=== PATIENT | female | born 1945 | race Caucasian/White ===

== ENCOUNTER → 2019-12-25 12:10 | Outpatient (BNVA) | payer MEDICARE, MEDICAID, SELFPAY | PROVIDERS: Family Provider Nurse Practitioner Family; PCP Nurse Practitioner Family; Visit Provider Nurse Practitioner Family | DX: I10 Essential (primary) hypertension (principal); E11.9 Type 2 diabetes mellitus without complications; E55.9 Vitamin D deficiency, unspecified; R53.83 Other fatigue | CPT/HCPCS: 80053; 80061; 82306; 83036; 84443; 85025 ==

== ENCOUNTER → 2020-04-25 10:38 | Outpatient (BNVA) | payer MEDICARE, MEDICAID, SELFPAY | PROVIDERS: Family Provider Nurse Practitioner Family; PCP Nurse Practitioner Family; Visit Provider Nurse Practitioner Family | DX: E53.8 Deficiency of other specified B group vitamins (principal) | CPT/HCPCS: 82607 ==

== ENCOUNTER → 2020-06-14 10:00 | Outpatient (BNVA) | payer MEDICARE, MEDICAID, SELFPAY | PROVIDERS: Family Provider Nurse Practitioner Family; PCP Nurse Practitioner Family; Visit Provider Nurse Practitioner Family | DX: Z11.59 Encounter for screening for other viral diseases (principal) | CPT/HCPCS: 87635 ==

== ENCOUNTER 2020-06-18 20:55 | Emergency (ER) | payer MEDICARE, MEDICAID, SELFPAY ==
--- NOTE | 2020-06-18 20:57 | XRR_ITS ---
PROCEDURE INFORMATION: Exam: XR Chest, 1 View Exam date and time: 06/18/2020 9:23 PM Age: 74 years old Clinical indication: Dyspnea; Additional info: SOB TECHNIQUE: Imaging protocol: XR of the chest Views: 1 view. COMPARISON: CR Chest 1 [place] [id number] 04/04/2017 10:19 PM FINDINGS: Lungs: There is mild ill-defined opacity in the lower lungs bilaterally. Pleural space: No large effusion or pneumothorax. Heart/Mediastinum: The cardiac silhouette is within normal limits of size given AP technique. Bones/joints: Bones are unremarkable. XR/XR chest 1V portable [id number] IMPRESSION: Nonspecific bilateral lower lung opacities. Chronicity is uncertain. Consider infection, atelectasis and interstitial disease.
--- NOTE | 2020-06-18 20:57 | ECG_ITS ---
[facility] Test Date: 2020-06-18 Pat Name: aGbi Calix Department: Room: Gender: Female Rn Family: : 1945 Requested By: Miguel Henry Order Number: [id number] Kimber MD: Ollie Eli M.D. Measurements Intervals [place] Rate: 74 P: 59 NJ: 175 QRS: -20 QRSD: 93 T: 16 QT: 328 QTc: 366 Interpretive Statements SINUS RHYTHM LOW QRS VOLTAGE IN PRECORDIAL LEADS [QRS DEFLECTION < 1.0 mV IN CHEST LEADS] LEFT VENTRICULAR HYPERTROPHY AND ST-T CHANGE [VOLTAGE CRITERIA PLUS ST/T ABNORMALITY] POSSIBLE ANTERIOR MYOCARDIAL INFARCTION , OF INDETERMINATE AGE [30 ms Q WAVE IN V3/V4, OR R < 0.2 mV IN V4] Compared to ECG 04/04/2017 23:16:06 Low QRS voltage now present ST (T wave) deviation now present Myocardial infarct finding now present Sinus bradycardia no longer present First degree AV block no longer present Electronically Signed On 06-19-2020 20:28:07 CDT by Ollie Eli M.D. [id number]
[2020-06-18 21:11] VITALS: BP 144/66; PULSE 80; RESP 24; TEMP 39.3; O2SAT 91; BMI 37.8
[2020-06-18 21:22] LABS: ABG PCO2 43.3 mmHg (35-45); ABG PH Result 7.43 (7.35-7.45); Arterial Blood Gas Hematocrit 40.8 % (37-47); Base Excess ABG 3.9 mmol/L (-2.0-2.0); Blood Gas Allen Test Pos; Blood Gas Operator Identificat JB; Blood Gas Sample Site Radial, right; Blood Gas Sample Type Arterial; HCO3 ABG 28.8 mmol/L (22-26); PO2 ABG 65.7 mmHg (80.0-100.0)
--- NOTE | 2020-06-18 21:22 | W.ED.FEVER ---
Documented by User: Miguel Henry MD 06/18/20 22:04 HPI - Fever General: Chief Complaint: Fever Stated Complaint: COVID+ / X1WK Time Seen by Provider: 06/18/20 21:00 Source: patient Mode of arrival: ambulatory Limitations: no limitations History of Present Illness: HPI Narrative: 74-year-old female who is here by EMS with COVID. She has a history of COPD as well. States that tonight she started having increasing shortness of breath. Patient tested +6 days ago and has been having symptoms for roughly a week. She states that she does wear oxygen at home as needed but is not on it all the time. Her pulse ox here was 90% on room air and is currently 96% on 2 L. She is able to talk in full sentences. She is febrile here. She denies any chest pain. Associated symptoms: Deny abdominal pain, chest pain, diarrhea, dysuria, headache(s), nausea or vomiting Review of Systems Const: Reports: fever(s) Eyes: Denies: blurry vision or eye discomfort ENMT: Denies: throat pain or dental pain Card: Denies: chest pain Resp: Reports: dyspnea and non-productive cough GI: Denies: abdominal pain, nausea, vomiting or diarrhea : Denies: dysuria Musc: Denies: neck pain or back pain Skin/Breast: Denies: rash Neuro: Denies: headache(s) Psych: Denies: depression Michael/Lymph: Denies: easy bruising All/Imm: Denies: urticaria PFSH ED PFSH: Medical History COPD (chronic obstructive pulmonary disease) DM type 2 (diabetes mellitus, type 2) Essential hypertension Osteoarthritis of knees, bilateral Family History Other COPD (chronic obstructive pulmonary disease) Physical Exam Const: COMMON NORMALS: no acute distress, patient oriented x3 and healthy appearing HENMT: COMMON NORMALS: normocephalic and atraumatic HEAD & SCALP: normocephalic and atraumatic Eye: COMMON NORMALS: Equal, round and reactive pupils present and EOMs intact bilaterally PUPIL: Yes Equal, round and reactive pupils present Neck/C-Spine: COMMON NORMALS: full ROM and supple Chest: COMMONS NORMALS: normal inspection of the chest and normal palpation of entire chest wall Resp: COMMON NORMALS: normal respiratory effort, No retractions, No use of accessory muscles and clear to auscultation bilaterally AUSCULTATION: clear to auscultation bilaterally and wheezes (mild) Cardio: COMMON NORMALS: regular rate, regular rhythm and No murmurs present (Cardio) RATE: regular rate RHYTHM: regular rhythm GI: COMMON NORMALS: Normal to inspection, nondistended, normoactive bowel sounds present, Soft to palpation, non-tender and no masses PALPATION: Yes Soft to palpation Extremity: COMMON NORMALS: normal to inspection and full ROM Neuro: COMMON NORMALS: patient oriented x3, moves all extremities and no focal motor deficits Psych: COMMON NORMALS: mental status grossly normal, Normal thought process present and cooperative THOUGHT PROCESS: Normal thought process present Skin: COMMON NORMALS: no rashes or lesions noted and no wounds GENERAL SKIN EXAM: no rashes or lesions noted Course Vital Signs: Vital signs: Vital Signs Temperature 102.7 F H 06/18/20 21:11 Pulse Rate 82 06/18/20 22:38 Respiratory Rate 18 06/18/20 23:14 Blood Pressure 130/61 06/18/20 23:14 Pulse Oximetry 96 06/18/20 23:14 MDM - Fever Lab Data: Labs: Lab Results 06/18/20 06/18/20 06/18/20 Range/Units 21:11 21:16 21:16 WBC 4.1 (4.0-10.0) 10^3/ uL RBC 3.92 L (4.1-5.3) 10^6/u L Hgb 10.7 L (11.5-15.3) g/dL Hct 34.8 L (37.0-47.0) % MCV 88.8 (81-99) fL MCH 27.3 L (28.0-34.0) pg MCHC 30.7 (30.0-36.0) g/dL RDW 14.7 (12.1-15.1) % Plt Count 170 (130-400) 10^3/c mm MPV 11.8 H (7.4-10.4) fL Neut % (Auto) 70.6 % Lymph % (Auto) 19.4 % [place] % (Auto) 9.6 % Eos % (Auto) 0.0 % Baso % (Auto) 0.2 % Neut # (Auto) 2.88 (1.8-7.7) 10^3/u L Lymph # (Auto) 0.8 (0.8-4.8) 10^3/u L [place] # (Auto) 0.4 (0.2-0.9) 10^3/u L Eos # (Auto) 0.0 (0.0-0.8) 10^3/u L Baso # (Auto) 0.0 (0.0-0.1) 10^3/u L Nucleated RBC % (a uto) 0 % Nucleated RBCs # 0.0 /100WBC Fibrinogen 491 (174-498) mg/dL D-Dimer 1.99 H (0-0.59) ug/mIFE U Specimen Type Arterial Sample Site Radial, right ABG pH 7.43 (7.35-7.45) ABG pCO2 43.3 (35-45) mmHg ABG pO2 65.7 L (80.0-100.0) mmH g ABG HCO3 28.8 H (22-26) mmol/L ABG Base Excess 3.9 H (-2.0-2.0) mmol/ L Hu Test Pos Hematocrit 40.8 (37-47) % O2 Delivery Device Nc Stocklayer ID Gurpreet Sodium (136-145) mmol/L Potassium (3.5-5.1) mmol/L Chloride (98-107) mmol/L Carbon Dioxide (22-29) mmol/L Anion Gap (5-19) BUN (8-23) mg/dL Creatinine (0.5-0.9) mg/dL GFR Calculation Glucose (65-115) mg/dL Calculated Osmolal ity (285-295) mOsm/k g Lactic Acid (0.5-2.2) mmol/L Calcium (8.5-10.5) mg/dL Total Bilirubin (0.15-1.2) mg/dL AST (0-32) U/L ALT (0-33) U/L Alkaline Phosphata se (35-105) IU/L NT-Pro-B Natriuret Pep (0-125) pg/mL Total Protein (6.6-8.7) g/dL Albumin (3.5-5.2) g/dL Globulin (1.3-4.6) g/dL 06/18/20 06/18/20 Range/Units 21:16 21:16 WBC (4.0-10.0) 10^3/ uL RBC (4.1-5.3) 10^6/u L Hgb (11.5-15.3) g/dL Hct (37.0-47.0) % MCV (81-99) fL MCH (28.0-34.0) pg MCHC (30.0-36.0) g/dL RDW (12.1-15.1) % Plt Count (130-400) 10^3/c mm MPV (7.4-10.4) fL Neut % (Auto) % Lymph % (Auto) % [place] % (Auto) % Eos % (Auto) % Baso % (Auto) % Neut # (Auto) (1.8-7.7) 10^3/u L Lymph # (Auto) (0.8-4.8) 10^3/u L [place] # (Auto) (0.2-0.9) 10^3/u L Eos # (Auto) (0.0-0.8) 10^3/u L Baso # (Auto) (0.0-0.1) 10^3/u L Nucleated RBC % (a uto) % Nucleated RBCs # /100WBC Fibrinogen (174-498) mg/dL D-Dimer (0-0.59) ug/mIFE U Specimen Type Sample Site ABG pH (7.35-7.45) ABG pCO2 (35-45) mmHg ABG pO2 (80.0-100.0) mmH g ABG HCO3 (22-26) mmol/L ABG Base Excess (-2.0-2.0) mmol/ L Hu Test Hematocrit (37-47) % O2 Delivery Device Stocklayer ID Sodium 137 (136-145) mmol/L Potassium 3.5 (3.5-5.1) mmol/L Chloride 98 (98-107) mmol/L Carbon Dioxide 27 (22-29) mmol/L Anion Gap 15.5 (5-19) BUN 6 L (8-23) mg/dL Creatinine 0.7 (0.5-0.9) mg/dL GFR Calculation Not Reportable Glucose 161 H (65-115) mg/dL Calculated Osmolal ity 285 (285-295) mOsm/k g Lactic Acid 1.0 (0.5-2.2) mmol/L Calcium 8.8 (8.5-10.5) mg/dL Total Bilirubin 0.4 (0.15-1.2) mg/dL AST 42 H (0-32) U/L ALT 17 (0-33) U/L Alkaline Phosphata se 62 (35-105) IU/L NT-Pro-B Natriuret Pep 588 H (0-125) pg/mL Total Protein 6.7 (6.6-8.7) g/dL Albumin 3.9 (3.5-5.2) g/dL Globulin 2.8 (1.3-4.6) g/dL Imaging Data^: CXR: Radiologist's impression: [place] [address] XRay Report Signed Patient: Gabi Calix Unit #: [id number] : 1945 Age/Sex: 74 / F ADM Date: 06/18/20 Loc: ER Room/Bed: Attending Dr: Ordering Provider/Ordering MD: Miguel Henry MD Date of Service: 06/18/20 Procedure(s): XR chest 1V portable [id number] Accession Number(s): [id number] Report Number: [id number] PROCEDURE INFORMATION: Exam: XR Chest, 1 View Exam date and time: 06/18/2020 9:23 PM Age: 74 years old Clinical indication: Dyspnea; Additional info: SOB TECHNIQUE: Imaging protocol: XR of the chest Views: 1 view. COMPARISON: CR Chest 1 [place] [id number] 04/04/2017 10:19 PM FINDINGS: Lungs: There is mild ill-defined opacity in the lower lungs bilaterally. Pleural space: No large effusion or pneumothorax. Heart/Mediastinum: The cardiac silhouette is within normal limits of size given AP technique. Bones/joints: Bones are unremarkable. XR/XR chest 1V portable [id number] IMPRESSION: Nonspecific bilateral lower lung opacities. Chronicity is uncertain. Consider infection, atelectasis and interstitial disease. EKG Data^: EKG 1: Attestation: I personally reviewed and interpreted this EKG as follows: EKG interpretation date: 06/18/20 EKG interpretation time: 21:07 Interpretation: nsr hr [address] or t wave abnormalities qrs 93 qtc 356 Discharge Plan Discharge Patient Disposition: Home Clinical Impression: COPD (chronic obstructive pulmonary disease), COVID-19 Condition: Stable Prescriptions: New prednisone 50 mg tablet 50 mg PO DAILY Qty: 5 RF: 0 doxycycline hyclate 100 mg capsule 100 mg PO BID 10 Days Qty: 20 RF: 0 No Action nystatin 100,000 unit/gram cream TOPICAL RF: 0 bumetanide 1 mg tablet 1 mg PO BID 30 Days Qty: 60 RF: 2 omega-3 fatty acids [Fish Oil Concentrate] 1,000 mg capsule 1,000 mg PO DAILY RF: 0 albuterol sulfate [ProAir HFA] 90 mcg/actuation HFA aerosol inhaler 2 puff INHALATION QID PRN (Reason: shortness of breath or wheezing) 30 Days Qty: 8.5 RF: 5 citalopram 20 mg tablet 20 mg PO DAILY 30 Days Qty: 30 RF: 2 celecoxib [Celebrex] 200 mg capsule 200 mg PO DAILY Qty: 30 RF: 2 furosemide [Lasix] 20 mg tablet 20 mg PO QAM 30 Days Qty: 30 RF: 2 omeprazole 40 mg capsule,delayed release(DR/EC) 40 mg PO DAILY Qty: 30 RF: 2 celecoxib [Celebrex] 200 mg capsule 200 mg PO DAILY Qty: 30 RF: 2 citalopram 20 mg tablet 20 mg PO DAILY Qty: 30 RF: 2 calcitonin (salmon) 200 unit/actuation spray,non-aerosol See Rx Instructions .ROUTE .COMPLEX Qty: 3.7 RF: 2 fluticasone propionate 50 mcg/actuation spray,suspension See Rx Instructions .ROUTE .COMPLEX Qty: 16 RF: 2 cyanocobalamin (vitamin B-12) 1,000 mcg/mL solution See Rx Instructions .ROUTE .COMPLEX Qty: 4 RF: 0 Discharge Orders: Discharge Order (Routine); Ordered 06/18/20 Ordered By: Kirill Munoz Referrals: RITU Smith, PRINTER TECHNICIAN [Primary Care Provider] - 1-3 days Discharge Diet: Advance as tolerated Discharge Activity: Resume usual activity Patient Instructions: Chronic Obstructive Pulmonary Disease (ED) Coding Level of Care Code ED Spray Dry Operator for Chg Fwd Exam Comprehensive Documented by User: Kirill Munoz DO 06/18/20 23:44 HPI - Fever General: Chief Complaint: Fever Stated Complaint: COVID+ / X1WK Time Seen by Provider: 06/18/20 21:00 [facility]: Medical History COPD (chronic obstructive pulmonary disease) DM type 2 (diabetes mellitus, type 2) Essential hypertension Osteoarthritis of knees, bilateral Family History Other COPD (chronic obstructive pulmonary disease) Course Vital Signs: Vital signs: Vital Signs Temperature 102.7 F H 06/18/20 21:11 Pulse Rate 82 06/18/20 22:38 Respiratory Rate 18 06/18/20 23:14 Blood Pressure 130/61 06/18/20 23:14 Pulse Oximetry 96 06/18/20 23:14 MDM - Fever MDM Narrative: Medical decision making narrative: Received in checkout from Dr. Henry at shift change. This lady is a 74-year-old COVID 19+ lady with a history of lung disease, she has oxygen at home. She uses it usually as needed, with BiPAP at night. She is in no distress, satting 94% on 2 L. CTA shows only mild bilateral infiltrates consistent with COVID pneumonia. She is received dexamethasone. She will go home on dexamethasone, with consistent use of her oxygen at home at 2 L to start. She will use her BiPAP at night. Her inflammatory markers were not significantly elevated. Lab Data: Labs: Lab Results 06/18/20 06/18/20 06/18/20 Range/Units 21:11 21:16 21:16 WBC 4.1 (4.0-10.0) 10^3/ uL RBC 3.92 L (4.1-5.3) 10^6/u L Hgb 10.7 L (11.5-15.3) g/dL Hct 34.8 L (37.0-47.0) % MCV 88.8 (81-99) fL MCH 27.3 L (28.0-34.0) pg MCHC 30.7 (30.0-36.0) g/dL RDW 14.7 (12.1-15.1) % Plt Count 170 (130-400) 10^3/c mm MPV 11.8 H (7.4-10.4) fL Neut % (Auto) 70.6 % Lymph % (Auto) 19.4 % [place] % (Auto) 9.6 % Eos % (Auto) 0.0 % Baso % (Auto) 0.2 % Neut # (Auto) 2.88 (1.8-7.7) 10^3/u L Lymph # (Auto) 0.8 (0.8-4.8) 10^3/u L [place] # (Auto) 0.4 (0.2-0.9) 10^3/u L Eos # (Auto) 0.0 (0.0-0.8) 10^3/u L Baso # (Auto) 0.0 (0.0-0.1) 10^3/u L Nucleated RBC % (a uto) 0 % Nucleated RBCs # 0.0 /100WBC Fibrinogen 491 (174-498) mg/dL D-Dimer 1.99 H (0-0.59) ug/mIFE U Specimen Type Arterial Sample Site Radial, right ABG pH 7.43 (7.35-7.45) ABG pCO2 43.3 (35-45) mmHg ABG pO2 65.7 L (80.0-100.0) mmH g ABG HCO3 28.8 H (22-26) mmol/L ABG Base Excess 3.9 H (-2.0-2.0) mmol/ L Hu Test Pos Hematocrit 40.8 (37-47) % O2 Delivery Device Nc Stocklayer ID Gurpreet Sodium (136-145) mmol/L Potassium (3.5-5.1) mmol/L Chloride (98-107) mmol/L Carbon Dioxide (22-29) mmol/L Anion Gap (5-19) BUN (8-23) mg/dL Creatinine (0.5-0.9) mg/dL GFR Calculation Glucose (65-115) mg/dL Calculated Osmolal ity (285-295) mOsm/k g Lactic Acid (0.5-2.2) mmol/L Calcium (8.5-10.5) mg/dL Total Bilirubin (0.15-1.2) mg/dL AST (0-32) U/L ALT (0-33) U/L Alkaline Phosphata se (35-105) IU/L NT-Pro-B Natriuret Pep (0-125) pg/mL Total Protein (6.6-8.7) g/dL Albumin (3.5-5.2) g/dL Globulin (1.3-4.6) g/dL 06/18/20 06/18/20 Range/Units 21:16 21:16 WBC (4.0-10.0) 10^3/ uL RBC (4.1-5.3) 10^6/u L Hgb (11.5-15.3) g/dL Hct (37.0-47.0) % MCV (81-99) fL MCH (28.0-34.0) pg MCHC (30.0-36.0) g/dL RDW (12.1-15.1) % Plt Count (130-400) 10^3/c mm MPV (7.4-10.4) fL Neut % (Auto) % Lymph % (Auto) % [place] % (Auto) % Eos % (Auto) % Baso % (Auto) % Neut # (Auto) (1.8-7.7) 10^3/u L Lymph # (Auto) (0.8-4.8) 10^3/u L [place] # (Auto) (0.2-0.9) 10^3/u L Eos # (Auto) (0.0-0.8) 10^3/u L Baso # (Auto) (0.0-0.1) 10^3/u L Nucleated RBC % (a uto) % Nucleated RBCs # /100WBC Fibrinogen (174-498) mg/dL D-Dimer (0-0.59) ug/mIFE U Specimen Type Sample Site ABG pH (7.35-7.45) ABG pCO2 (35-45) mmHg ABG pO2 (80.0-100.0) mmH g ABG HCO3 (22-26) mmol/L ABG Base Excess (-2.0-2.0) mmol/ L Hu Test Hematocrit (37-47) % O2 Delivery Device Stocklayer ID Sodium 137 (136-145) mmol/L Potassium 3.5 (3.5-5.1) mmol/L Chloride 98 (98-107) mmol/L Carbon Dioxide 27 (22-29) mmol/L Anion Gap 15.5 (5-19) BUN 6 L (8-23) mg/dL Creatinine 0.7 (0.5-0.9) mg/dL GFR Calculation Not Reportable Glucose 161 H (65-115) mg/dL Calculated Osmolal ity 285 (285-295) mOsm/k g Lactic Acid 1.0 (0.5-2.2) mmol/L Calcium 8.8 (8.5-10.5) mg/dL Total Bilirubin 0.4 (0.15-1.2) mg/dL AST 42 H (0-32) U/L ALT 17 (0-33) U/L Alkaline Phosphata se 62 (35-105) IU/L NT-Pro-B Natriuret Pep 588 H (0-125) pg/mL Total Protein 6.7 (6.6-8.7) g/dL Albumin 3.9 (3.5-5.2) g/dL Globulin 2.8 (1.3-4.6) g/dL Discharge Plan Discharge Patient Disposition: Home Clinical Impression: COPD (chronic obstructive pulmonary disease), COVID-19 Condition: Stable Prescriptions: New prednisone 50 mg tablet 50 mg PO DAILY Qty: 5 RF: 0 doxycycline hyclate 100 mg capsule 100 mg PO BID 10 Days Qty: 20 RF: 0 No Action nystatin 100,000 unit/gram cream TOPICAL RF: 0 bumetanide 1 mg tablet 1 mg PO BID 30 Days Qty: 60 RF: 2 omega-3 fatty acids [Fish Oil Concentrate] 1,000 mg capsule 1,000 mg PO DAILY RF: 0 albuterol sulfate [ProAir HFA] 90 mcg/actuation HFA aerosol inhaler 2 puff INHALATION QID PRN (Reason: shortness of breath or wheezing) 30 Days Qty: 8.5 RF: 5 citalopram 20 mg tablet 20 mg PO DAILY 30 Days Qty: 30 RF: 2 celecoxib [Celebrex] 200 mg capsule 200 mg PO DAILY Qty: 30 RF: 2 furosemide [Lasix] 20 mg tablet 20 mg PO QAM 30 Days Qty: 30 RF: 2 omeprazole 40 mg capsule,delayed release(DR/EC) 40 mg PO DAILY Qty: 30 RF: 2 celecoxib [Celebrex] 200 mg capsule 200 mg PO DAILY Qty: 30 RF: 2 citalopram 20 mg tablet 20 mg PO DAILY Qty: 30 RF: 2 calcitonin (salmon) 200 unit/actuation spray,non-aerosol See Rx Instructions .ROUTE .COMPLEX Qty: 3.7 RF: 2 fluticasone propionate 50 mcg/actuation spray,suspension See Rx Instructions .ROUTE .COMPLEX Qty: 16 RF: 2 cyanocobalamin (vitamin B-12) 1,000 mcg/mL solution See Rx Instructions .ROUTE .COMPLEX Qty: 4 RF: 0 Discharge Orders: Discharge Order (Routine); Ordered 06/18/20 Ordered By: Kirill Munoz Referrals: RITU Smith, PRINTER TECHNICIAN [Primary Care Provider] - 1-3 days Discharge Diet: Advance as tolerated Discharge Activity: Resume usual activity Patient Instructions: Chronic Obstructive Pulmonary Disease (ED) Coding Level of Care Code ED Spray Dry Operator for Prince Fwdarryl Exam Comprehensive
[2020-06-18 21:23] LABS: Oxygen Device NC
[2020-06-18] MEDS: dexamethasone 10 mg/mL INJ IVP (21:23)
[2020-06-18] MEDS: acetaminophen 500 mg Tablet 1000 MG PO (21:41)
[2020-06-18 21:48] LABS: Basophils % 0.2 %; Hematocrit 34.8 % (37.0-47.0); Hemoglobin 10.7 g/dL (11.5-15.3); Lymphocytes # 0.8 10^3/uL (0.8-4.8); Lymphocytes % 19.4 %; Mean Corpuscular HGB Conc 30.7 g/dL (30.0-36.0); Mean Corpuscular Hemoglobin 27.3 pg (28.0-34.0); Mean Corpuscular Volume 88.8 fL (81-99); Mean Platelet Volume 11.8 fL (7.4-10.4); Monocytes # 0.4 10^3/uL (0.2-0.9); Monocytes % 9.6 %; Neutrophils # 2.88 10^3/uL (1.8-7.7); Neutrophils % 70.6 %; Nucleated Red Blood Cells % 0 %; Platelet Count 170 10^3/cmm (130-400); Red Blood Count 3.92 10^6/uL (4.1-5.3); Red Cell Distribution Width 14.7 % (12.1-15.1); White Blood Count 4.1 10^3/uL (4.0-10.0)
[2020-06-18 21:55] LABS: Fibrinogen 491 mg/dL (174-498)
[2020-06-18 21:56] LABS: D Dimer 1.99 ug/mIFEU (0-0.59)
--- NOTE | 2020-06-18 21:59 | CTR_ITS ---
PROCEDURE INFORMATION: Exam: CT Angiography Chest With Contrast Exam date and time: 06/18/2020 10:17 PM Age: 74 years old Clinical indication: Shortness of breath; Patient HX: Covid+, HX of copd C/O worsening SOB w elev d-dimer TECHNIQUE: Imaging protocol: Computed tomographic angiography of the chest with intravenous contrast. 3D rendering (Not supervised by radiologist): MIP and/or 3D reconstructed images were created by the technologist. Radiation optimization: All CT scans at this facility use at least one of these dose optimization techniques: automated exposure control; mA and/or kV adjustment per patient size (includes targeted exams where dose is matched to clinical indication); or iterative reconstruction. Contrast material: OMNI 350; Contrast volume: 95 ml; Contrast route: INTRAVENOUS (IV); COMPARISON: CR (CHEST, ) 06/18/2020 9:12 PM RADIATION DOSE METRICS: Total DLP (mGy-cm): 534.42 FINDINGS: Pulmonary arteries: The pulmonary arteries are adequately opacified for evaluation to the subsegmental level. There is no filling defect to suggest embolism. Aorta: There is mild aortic atherosclerotic disease. Thyroid: 17 x 11 mm left lower pole thyroid nodule. Lungs: There is mild patchy subpleural predominant ground-glass and reticular opacity bilaterally. Pleural space: There is no pleural effusion or pneumothorax. Heart: The heart is unremarkable. There is no pericardial effusion. Mediastinal space: There is a small sliding-type hiatal hernia. Lymph nodes: There is no mediastinal or hilar lymphadenopathy. Bones/joints: Mild broad-based thoracic kyphosis and diffuse degenerative disc disease. No fracture. Soft tissues: The extrathoracic soft tissues are unremarkable. CT/CT angio chest PE protcl [id number] IMPRESSION: 1. Mild bilateral lung disease. Commonly reported imaging features of COVID-19 pneumonia are present. Other processes such as influenza pneumonia and organizing pneumonia (as can be seen with drug toxicity and connective tissue disease), can produce a similar imaging pattern. 2. No pulmonary embolism. 3. Left lower pole thyroid nodule. Recommend nonemergent follow-up thyroid ultrasound. COMMENTS: Consistent with the [employer]'s Incidental Findings Committee white paper (J Am Helga Radiol 2015): In patients aged 35 years and older with an incidental thyroid nodule equal to or greater than 1.[address], MRI or extrathyroidal US, further evaluation with dedicated thyroid US is recommended for patients with normal life expectancy and without comorbidities. For smaller nodules without suspicious features, no further evaluation or follow up is recommended. Radiation Dose CTDIVOL = (mGy): DLP = 534.42 (mGy-cm)
[2020-06-18 22:12] LABS: Alanine Aminotransferase 17 U/L (0-33); Albumin Level 3.9 g/dL (3.5-5.2); Alkaline Phosphatase 62 IU/L (35-105); Aspartate Amino Transferase 42 U/L (0-32); Blood Urea Nitrogen 6 mg/dL (8-23); Calcium 8.8 mg/dL (8.5-10.5); Carbon Dioxide 27 mmol/L (22-29); Chloride 98 mmol/L (98-107); Creatinine Clr Calc Pharmacy 70.8418; Globulin 2.8 g/dL (1.3-4.6); Glucose 161 mg/dL (65-115); NT Pro B Type Natriuretic Pept 588 pg/mL (0-125); Osmolality Calculated 285 mOsm/kg (285-295); Sodium 137 mmol/L (136-145); Total Bilirubin 0.4 mg/dL (0.15-1.2); Total Protein 6.7 g/dL (6.6-8.7)
[2020-06-18 22:16] LABS: Anion Gap 15.5 (5-19); Potassium 3.5 mmol/L (3.5-5.1)
[2020-06-18 22:38] VITALS: PULSE 82; RESP 20; O2SAT 96
[2020-06-18] MEDS: iohexol 350 mg/mL 100 mL Btl IV (22:39)
[2020-06-18 23:14] VITALS: BP 130/61; RESP 18; O2SAT 96
[2020-06-19 00:52] LABS: Ferritin 76 ng/mL (15-150)
[2020-06-19 01:05] VITALS: BP 128/66; PULSE 77; RESP 18; O2SAT 96
[2020-06-19 01:28] LABS: C Reactive Protein 71.5 mg/L (0.0-4.9)
== END 2020-06-19 01:07 | disposition home or self-care (01) ==
PROVIDERS: Emergency Medicine; Emergency Provider Emergency Medicine; PCP Nurse Practitioner Family
DX: U07.1 COVID-19 (principal); J44.9 Chronic obstructive pulmonary disease, unspecified; E11.9 Type 2 diabetes mellitus without complications; I10 Essential (primary) hypertension
CPT/HCPCS: 12345; 71045; 71275; 80053; 82728; 82803; 83605; 83880; 85025; 85378; 85384; 86140; 93005; 96374; 96375; 99283; 99284; J1100; Q9967

== ENCOUNTER → 2020-08-18 11:49 | Outpatient (BNVA) | payer MEDICARE, MEDICAID, SELFPAY | PROVIDERS: PCP Nurse Practitioner Family; Visit Provider Nurse Practitioner Family | DX: E04.1 Nontoxic single thyroid nodule (principal); E11.9 Type 2 diabetes mellitus without complications; I10 Essential (primary) hypertension | CPT/HCPCS: 36415; 80053; 84443 ==

== ENCOUNTER 2020-09-01 14:34 | Outpatient (CLI) | payer MEDICARE, MEDICAID, SELFPAY ==
--- NOTE | 2020-09-01 15:00 | US_ITS ---
WS: [id number] THYROID ULTRASOUND (TI-RADS CRITERIA) History: Nontoxic goiter.. Technique: Ultrasound examination of the thyroid and adjacent soft tissues is performed. FINDINGS: Right lobe: 3.9 cm x 1.7 cm x 1.7 cm. Volume: 5.8 cm3. Normal size gland. 0.5 cm nodule in the superior pole. 1 cm hypoechoic nodule in the inferior RIGHT t hyroid with a maximum diameter 1.0 cm. Left lobe: 3.4 cm x 1.5 cm x 1.9 cm. Volume: 5.0 cm3. Normal size spleen. Several suspicious nodules are identified. Isthmus: 0.4 cm. Estimated total number of nodules greater than or equal to 1 cm: 1 on the RIGHT and 2 on the LEFT. Number of spongiform nodules greater than or equal to 2 cm not described below (TR1): 0 Number of mixed cystic and solid nodules greater than or equal to 1.5 cm not described below (TR2): 0 NODULE: RIGHT, number 2 Size: 1.0 x 0.5 x 0.8 cm. Location: Inferior pole. Composition: Solid/almost completely solid (2) Echogenicity: Hypoechoic (2) Shape: Not taller than wide (0) Margins: Smooth (0) Echogenic foci: None (0) ACR TI-RADS total points: 4 ACR TI-RADS risk category: TR 4 NODULE: LEFT, 1 Size: 1.1 x 0.6 x 0.9 cm. Location: Superior pole Composition: Solid/almost completely solid (2) Echogenicity: Hypoechoic (2) Shape: Not taller than wide (0) Margins: Smooth (0) Echogenic foci: Punctate echogenic foci (3) ACR TI-RADS total points: 7 ACR TI-RADS risk category: TR 5 NODULE: LEFT, 3 Size: 1.3 x 1.5 x 2.0 cm. Location: Mid LEFT Composition: Mixed cystic and solid (1) Echogenicity: Hypoechoic (2) Shape: Beajjj-borq-etor 2 Margins: Smooth (0) Echogenic foci: Punctate echogenic foci (3) ACR TI-RADS total points: 8 ACR TI-RADS risk category: TR 5 US/US thyroid [id number] Impression: TR 5 Recommendation:There are 2 nodules in the LEFT thyroid for which ultrasound exa mination recommended.
== END 2020-09-01 14:35 | disposition home or self-care (01) ==
LOC: RAD 14:39
PROVIDERS: PCP Nurse Practitioner Family; Visit Provider Nurse Practitioner Family
DX: E04.2 Nontoxic multinodular goiter (principal)
CPT/HCPCS: 76536

== ENCOUNTER 2020-09-19 12:02 | Outpatient (CLI) | payer MEDICARE, MEDICAID, SELFPAY ==
--- NOTE | 2020-09-19 13:00 | US_ITS ---
WS: [id number] ULTRASOUND-GUIDED LEFT THYROID NODULE FNA x 2 HISTORY: E04.1 - Nontoxic single thyroid nodule, 2 thyroid nodules for which biopsy is recommended. Procedure, risks, and complications were explained to the patient. Consent has been obtained. Complex cystic mass in the mid gland and solid nodule in the upper gland are targeted for biopsy. The skin is cleansed with ChloraPrep and anesthetized with 1% buffered lidocaine. FNA performed with 25 gauge needles. creative technologist is present to fix slides. US/US biopsy thyroid [id number] IMPRESSION: Fine-needle aspirations are performed of the posterior mid gland nodule and the superior pole thyroid mass. Final pathology results pending.
== END 2020-09-19 12:03 | disposition home or self-care (01) ==
LOC: RAD 12:07
PROVIDERS: PCP Nurse Practitioner Family; Visit Provider Nurse Practitioner Family
DX: E04.1 Nontoxic single thyroid nodule (principal)
CPT/HCPCS: 10005; 10006; 88173; 88305

== ENCOUNTER → 2020-11-23 00:01 | Outpatient (BNVA) | payer MEDICARE, MEDICAID, SELFPAY | PROVIDERS: PCP Nurse Practitioner Family; Visit Provider Nurse Practitioner Family | DX: E53.8 Deficiency of other specified B group vitamins (principal) | CPT/HCPCS: 82607 ==

== ENCOUNTER → 2021-05-15 10:11 | Outpatient (BNVA) | payer MEDICARE, MEDICAID, SELFPAY | PROVIDERS: PCP Nurse Practitioner Family; Visit Provider Specialist | DX: M17.0 Bilateral primary osteoarthritis of knee (principal) | CPT/HCPCS: 73560; 73565 ==

== ENCOUNTER 2021-05-18 07:11 | Outpatient (CLI) | payer MEDICARE, MEDICAID, SELFPAY ==
--- NOTE | 2021-05-18 07:15 | USCV_ITS ---
Gabi Calix Age: 75 Gender: F : 1945 Exam Date: 05/18/2021 07:08 Ordering Phys: China Lucero MD Technologist: Hakan Live Business Continuity Analyst [place] [facility] [place]: [place]AL[place]ED EDEMA RIGHT LEFT Brachial 169.00 mmHg Brachial 165.00 mmHg Pressure (mmHg) Waveform Pressure (mmHg) Waveform 143.00 Pre-Exercise Toe Pressure 118.00 0.85 Pre-Exercise Toe/Brachial Index 0.70 FINDINGS Noncompressible arteries at the ankle bilaterally Normal resting TBIs bilaterally PVR waveforms showing blunting of the dicrotic notch CONCLUSIONS Features suggestive of extensive arterial sclerosis No significant obstruction, based on the above findings Dr Manpreet Savage MD FACC (Electronically Signed) Final Date: 22 May 2021 17:12 S
== END 2021-05-18 07:12 | disposition home or self-care (01) ==
LOC: RAD 07:17
PROVIDERS: PCP Nurse Practitioner Family; Visit Provider Specialist
DX: R60.0 Localized edema (principal)
CPT/HCPCS: 93923

== ENCOUNTER → 2021-05-19 12:30 | Outpatient (BNVA) | payer MEDICARE, MEDICAID, SELFPAY | PROVIDERS: PCP Nurse Practitioner Family; Visit Provider Nurse Practitioner Family | DX: E04.1 Nontoxic single thyroid nodule (principal); I10 Essential (primary) hypertension; E11.9 Type 2 diabetes mellitus without complications; E55.9 Vitamin D deficiency, unspecified; E53.8 Deficiency of other specified B group vitamins; Z13.6 Encounter for screening for cardiovascular disorders | CPT/HCPCS: 80053; 80061; 81003; 82306; 83036; 83735; 84100; 84439; 84443; 85025 ==

== ENCOUNTER → 2021-05-26 10:52 | Outpatient (BNVA) | payer MEDICARE, MEDICAID, SELFPAY | PROVIDERS: PCP Nurse Practitioner Family; Visit Provider Specialist | DX: Z01.818 Encounter for other preprocedural examination (principal); M17.0 Bilateral primary osteoarthritis of knee; Z20.822 Contact with and (suspected) exposure to COVID-19 | CPT/HCPCS: 87635 ==

== ENCOUNTER → 2021-05-29 10:30 | Outpatient (BNVA) | payer MEDICARE, MEDICAID, SELFPAY | PROVIDERS: PCP Nurse Practitioner Family; Visit Provider Specialist | DX: Z20.822 Contact with and (suspected) exposure to COVID-19 (principal); M17.0 Bilateral primary osteoarthritis of knee | CPT/HCPCS: 87635 ==

== ENCOUNTER 2021-06-01 16:20 | Observation (INO) | payer MEDICARE, MEDICAID, SELFPAY ==
[2021-05-26 12:30] VITALS: BMI 36.0
--- NOTE | 2021-05-26 12:36 | ECG_ITS ---
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 Measurements Intervals [place] Rate: 50 P: 67 [place]: 220 QRS: -16 QRSD: 90 T: -11 QT: 417 QTc: 381 Interpretive Statements SINUS BRADYCARDIA WITH FIRST DEGREE AV BLOCK LOW QRS VOLTAGE IN PRECORDIAL LEADS [QRS DEFLECTION < 1.0 mV IN CHEST LEADS] VOLTAGE CRITERIA FOR LVH [MEETS CRITERIA IN ONE OF: R(aVL), S(V1), R(V5), R(V5/V6)+S(V1)] POSSIBLE ANTERIOR MYOCARDIAL INFARCTION , OF INDETERMINATE AGE [30 ms Q WAVE IN V3/V4, OR R < 0.2 mV IN V4] Compared to ECG 06/18/2020 21:07:33 First degree AV block now present Sinus rhythm no longer present ST (T wave) deviation no longer present Myocardial infarct finding still present Electronically Signed On 05-26-2021 20:38:09 CDT by Ollie Eli M.D. [email or web address]
--- NOTE | 2021-05-26 13:23 | ANES.PREANE2 ---
Pre-Anesthetic Assessment Pre-Anesthetic Assessment: Height/Weight: Height 1.63 m Weight 95.254 kg Proposed Procedure: Operation Date: 05/30/21 09:00 Proposed Procedures p Total Knee Arthroplasty 40102 M17.10(Left) - China Lucero MD Was Beta Amy taken within 24 hours: N/A Was Clonidine taken within 24 hours: N/A Social: Social History: No alcohol and No tobacco Exam: Pre-Anes Outpt Exam: alert, oriented x 3, clear to auscultation bilaterally and regular rate & rhythm Airway: Submandibular: WNL Cervical ROM: Other (limited) MP: 3 Pulmonary: Pulmonary: COPD and Sleep apnea CV/HEM: CV/HEM: HTN : : None reported Hepatic: Hepatic: None reported Metabolic: Metabolic: DM, Morbid obesity and Thyroid (nodules) Musc/skel: Musc/skel: OA/DJD Neuropsych: Neuropsych: None reported Anesthetic Plan: ASA status: 3 Anesthesia: Regional (specify below) (Spinal with Adductor Canal Block) Risk of > 500 ml blood loss (7ml/kg in children): Yes, adequate IV access and fluids planned PFSH Anesthesia PFSH: Medical History COPD (chronic obstructive pulmonary disease) DM type 2 (diabetes mellitus, type 2) Edema of both lower extremities Essential hypertension Hypertension screen Influenza vaccine needed Left thyroid nodule DYLAN (obstructive sleep apnea) Osteoarthritis of knees, bilateral Vitamin B 12 deficiency Vitamin D deficiency Family History Other COPD (chronic obstructive pulmonary disease) Social History Smoking and tobacco status: former smoker Data Anesthesia Cardiac Studies: No Data to Display
[2021-06-01] VITALS (13 sets, daily range): BP systolic 127–167; BP diastolic 53–94; PULSE 48–90; RESP 15–20; TEMP 36.2–36.9; O2SAT 90–98; BMI 36.0
[2021-06-01] MEDS: acetaminophen 1,000 MG/100 ML PIGGYBACK 400 MG IV ×2 (11:41→18:16)
[2021-06-01] MEDS: sodium chloride 0.9% 1,000 ML 30 ML IV (11:41)
[2021-06-01] MEDS: CELEcoxib 200 mg Capsule 400 MG PO (11:42)
--- NOTE | 2021-06-01 12:09 | P.ANESUD_ITS ---
Pre-Anesthetic Update Pre-Anesthetic Assessment: Date of Surgery/Procedure: 06/01/21 Preop Dinora gnosis: Severe osteoarthritis right knee Proposed Procedure: Operation Date: 06/01/21 12:30 Proposed Procedures p Total Knee Arthroplasty 35876 M17.10(Right) - China Lucero MD Any changes to Pre-Anesthetic Assessment?: No Last Intake: Intake Last Liquid Date 05/31/21 Last Liquid Time 20:00 Last Solid Date 05/31/21 Last Solid Time 17:30 Vitals: Temperature 98.2 F 06/01/21 11:38 Temperature Source Temporal Artery S can 06/01/21 11:38 Pulse Rate 59 L 06/01/21 11:38 Pulse Rhythm 06/01/21 11:22 Pulse Strength 3+ Normal 06/01/21 11:22 Respiratory Rate 18 06/01/21 11:38 Blood Pressure 153/78 06/01/21 11:38 Blood Pressure Jessica n 103 06/01/21 11:38 Pulse Oximetry 92 06/01/21 11:38 Oxygen Delivery Me thod 06/01/21 11:38 Exam: Pre-Anes Outpt Exam: alert, oriented x 3, clear to auscultation bilaterally and regular rate & rhythm Other Pertinent Information: Other Pertinent Information: SAB with adductor blk Cardiac Studies: No Data to Display
--- NOTE | 2021-06-01 12:45 | W.PM.OPSUD ---
Surgery/Procedure H&P Update DATE OF PROCEDURE: June 01, 2021 DATE H&P PERFORMED: 05/29/21 H&P UPDATE INFORMATION: I have reviewed H&P completed within last 30 days, I have examined patient prior to procedure, No changes to prior documentation and H&P is in [facility] on date indicated PREOP DIAGNOSIS: Severe osteoarthritis right knee PLANNED PROCEDURE: Operation Date: 06/01/21 12:30 Proposed Procedures p Total Knee Arthroplasty 15474 M17.10(Right) - China Lucero MD Related Problem List Diagnoses (1) Primary osteoarthritis of right knee:
[2021-06-01] MEDS: vancomycin 1,000 MG in sodium chloride 0.9% 250 ML 250 MG IV (12:58)
--- NOTE | 2021-06-01 13:41 | ANES.PROC ---
Anesthesia Procedures Procedure/Date: 06/01/21 Nerve Block ^: Nerve Block 1: Main Anesthesia: spinal anesthesia block Consent: requested by attending/covering physician, from patient, risks and benefits reviewed and patient agrees to proceed Nerve block location: adductor canal (right) Anesthesia monitors applied: pulse oximetry, EKG, BP cuff and oxygen Nerve block position: supine Anesthetic Used: ropivicaine 0.5% Amount of anesthesia used (mL): 20 Ultrasound used to: recognize landmarks Nerve Stimulator Used?: No Interscalene/Femoral BLK: 4 stimuplex 21 g needle used for position and inplane approach Injection: neg aspiration of heme Patient Tolerated Procedure: well Complications: none
[2021-06-01] MEDS: vancomycin 1,000 MG SDV 1000 MG XX (14:15)
[2021-06-01] MEDS: ceFAZolin 1,000 mg SDV 2000 MG IRRIGATION (14:15)
--- NOTE | 2021-06-01 16:23 | PC.NURSE ---
Spinal level below T12, moving toes on both legs
--- NOTE | 2021-06-01 16:25 | XR_ITS ---
WS: [id number] XR knee RT 1-2V 64581 REASON FOR EXAM: Status post total knee arthroplasty FINDINGS: Total right knee arthroplasty. The components of the prosthesis are in proper position and alignment. No bony abnormality. XR/XR knee RT 1-2V 56281 IMPRESSION: Total right knee arthroplasty without abnormality.
--- NOTE | 2021-06-01 16:41 | P.OP_ITS ---
Operative Report Date of procedure: June 01, 2021 Pre-op Diagnosis: Severe osteoarthritis right knee Post-op diagnosis: same Post-op Diagnosis: With osteoporosis Post-op Findings: Severe degenerative osteoarthritis with large osteophytes. Osteoporotic bone with weak medial collateral ligament attachment proximally. Slight flexion contracture initially even with anesthesia. Procedure Done: Right total knee arthroplasty with supplementation to the medial collateral ligament utilizing #5 Force Fiber Implants: The [place] total knee system with a size 4 triathlon beaded posterior stabilized femur right, a triathlon titanium tibial component size 5 beaded, a triathlon X3 posterior stabilized tibial bearing insert size 5 X 13 mm and a beaded triathlon titanium asymmetric patella size 35 x 10 mm Specimens removed/disposition: Bone, disposed of Pathology: none sent Surgeon: China Lucero Applied Psychology Professor: [facility] operating room technicians Anesthesia: MAC (With spinal and supplemental regional block, ASA 3) Estimated blood loss (mL): 5 Tourniquet time (min): 117 Tourniquet time: At 250 mmHg IV fluids (mL): 900 Urine output (mL): 250 Complications: None Condition: stable Disposition: PACU (Then to floor for postoperative rehabilitation and pain management as well as medical observation) Brief History: This 75-year-old woman presented to the office with severe right knee pain which was incapacitating. She had significant varus deformity as well as a flexion contracture.. She was unable to ambulate or perform reasonable activities of daily living. None of these activities were able to be accomplished comfortabl y. She was unresponsive to conservative measures and wished to proceed with right total knee arthroplasty. Risks and complications were discussed. Consents were signed preoperatively, and questions were answered. The patient wished to proceed. Procedure: The patient was brought to the operating theater, and after undergoing adequate spinal anesthesia supplemented with regional block and MAC, ASA 3, the right lower extremity was prepped with Dura-Prep and draped in usual fashion following placement of a tourniquet high on the leg. The leg was then draped free. Following prepping and draping, the leg was exsanguinated, and the tourniquet was elevated to 250 mmHg for a total tourniquet time of 117 minutes. Prior to elevation of the tourniquet, but following exposure of the site of surgery, a surgical pause was performed. At the time of the surgical pause, we confirmed the site and side of surgery. Additionally, we confirmed the appropriate and timely administration of preoperative antibiotics, vancomycin 1 g. and Transexemic acid 1 g. The availability of equipment was confirmed, and the patient's identity was verbalized as well. Following the surgical pause, an incision was made centering over the patella continuing proximally and distally as necessary to allow access to the knee joint. Dissection continued through skin and soft tissues using a scalpel. Hemostasis was obtained using electrocautery. The skin incision was followed by a median parapatellar arthrotomy. The leg was extended and the patella was everted. Following this, the leg was returned to flexed position. The distal femur was exposed, and a drill hole was made in this for placement of the distal femoral jig. The distal femoral jig was set at 5? of valgus. The distal femoral cutting block was then placed in appropriate position, and an hortensia wing was used to confirm an appropriate amount of distal femur would be resected. The distal femoral resection was accomplished with 8 mm of bone being resected distally. After the distal femoral resection had been accomplished, the femur was measured and it measured a size 4. Medial lateral dimension also measured a size 4. A size 4 femoral cutting block was placed in position, and we were then able to accomplish the anterior, posterior and chamfer cuts. This jig was then removed and the notch guide was placed in position. With the notch guide in appropriate position, the notch was excised including resection of the anterior and posterior cruciate ligaments. This notch was to allow for the posterior stabilized femoral component. At this point, the femur was prepared and attention was directed to the proximal tibia. The femur was noted to be osteopenic, but with the fit of the femoral component, it was felt that we could use a press fitted prosthesis. Of note, the medial collateral ligament was noted to be tenuous at its proximal attachment, and this was supplemented with #5 Force Fiber. The posterior knee retractor was placed along with medial and lateral retractors. Further resection of the menisci was accomplished as we had better visualization. A complete meniscectomy was performed both medially and laterally with care being taken to protect the popliteus. Retractors were then placed so that the proximal tibia was well visualized. A drill hole was then made in the tibia for placement of the intramedullary guide. This guide was placed so that approximately 2 mm of bone would be resected from the deficient medial tibial plateau. The intramedullary guide was utilized supplemented with an extramedullary guide to assure appropriate alignment for the proximal tibial resection. The proximal tibial jig was then evaluated, pinned in position, and the proximal tibial resection was accomplished without difficulty. The jig was removed, and the proximal tibia was measured. It measured a size 5. We then attempted a trial reduction with a size 5 by 9 mm. Osteophytes were also removed from the tibia. The femoral component was placed in position for the trial reduction, and the knee was placed through range of motion. With this, there was appropriate patellar tracking. Extension was noted to be full as well. After the knee was manipulated, we were able to insert a size 6 x 11 mm followed by a 6 x 13 mm insert. With a 6 x 13 mm insert, we had full extension. With this we had excellent varus valgus alignment. The knee was stable to varus valgus stress as well. Therefore, this was the chosen component. There was full extension and flexion without lift off and the rotation of the tibia was marked. Alignment was checked from the hip to the ankle, and this was noted to be appropriate as well. Attention was then directed to the patella. The patella was measured with a caliper. We resected sufficient patella to leave approximately 14 mm of patella remaining. Measurements of the patella then indicated that a size asymmetric 35 mm x 10 mm was the appropriate patellar size. We then placed the jig to drill for the 3 pegs of the press-fit patella, and these drill holes were made without incident. A trial patella was then placed, and the knee was placed through range of motion. The patella was noted to track nicely without evidence of subluxation. The femur was prepared for a press-fit femur by drilling 2 holes for the femoral pegs. All trial components were subsequently removed. The tibial tray was then pinned into position, and we broached the tibia for the stem of the tibial component. Subsequently, 4 drill holes were made for placement of the press-fit tibia. This was accomplished without difficulty. Care was taken to assure appropriate rotation of the tibia as well as appropriate position on the proximal tibia. The tibial tray was completely seated on the proximal tibia. Following broaching, the tibial guide was removed, and all surfaces were copiously irrigated. The surfaces were then dried and a bone plug was placed into the distal femur. Exparel was also injected at this point. The Tritanium tibia was impacted into position. The beaded femur was then impacted into position in a cementless fashion. The tibial insert was placed. The patella was pressed into position with a patellar clamp. The knee was then copiously irrigated and suctioned dry. Attention was then directed to closure. Closure was accomplished with 0 Vicryl in the fascial tissues. Following this, a 2-0 Monocryl was used in the subcutaneous tissues, and the skin was closed with skin mai. The skin was noted to be quite fragile, and care was taken to assure an excellent subcutaneous as well as skin closure. A sterile dressing was then placed consisting of Dermabond Prineo, Telfa, 4x4's, sterile soft roll, and an Russel wrap. The patient was returned the Recovery Room in a satisfactory condition. X-rays were obtained and reviewed there. The patient will be discharged to the floor for postoperative rehabilitation and pain management. Associated Problem List Diagnoses (1) Primary osteoarthritis of right knee:
--- NOTE | 2021-06-01 16:45 | ANE.PACU2 ---
Inpatient post-anesthesia follow up: Airway intact: Yes Vital signs: Temperature 97.2 F Pulse Rate 68 Respiratory Rate 20 Blood Pressure 150/72 Pulse Oximetry 90 Oxygen Delivery Me thod Room Air Oxygen Flow Rate Fraction of Inspir ed Oxygen Hydration adequate: Yes Nausea and vomiting: No Pain level: 2 Mental status: Baseline
[2021-06-01] MEDS: bumetanide 1 mg Tablet 0.5 MG PO (18:00)
[2021-06-01] MEDS: calcium carbonate 500 mg Chew Tablet 1000 MG PO (18:00)
[2021-06-01] MEDS: iron polysaccharide complex 150 mg Capsule PO (18:01)
[2021-06-01] MEDS: mupirocin oint 22 gm 1 APPLIC NASAL (18:01)
[2021-06-01] MEDS: chlorhexidine gluconate 0.12% Btl 473 mL 30 ML MUCOUS MEM ×2 (18:11→21:15)
[2021-06-01] MEDS: ondansetron 2 mg/ML SDV 2 mL 4 MG IVP (22:16)
[2021-06-01] MEDS: CELEcoxib 200 mg Capsule PO (22:16)
[2021-06-02] VITALS (7 sets, daily range): BP systolic 103–120; BP diastolic 57–66; PULSE 53–59; RESP 16–18; TEMP 36.5–37.1; O2SAT 91–96
[2021-06-02] MEDS: acetaminophen 1,000 MG/100 ML PIGGYBACK 400 MG IV ×2 (02:40→12:09)
[2021-06-02 02:54] LABS: Basophils # 0.1 10^3/uL (0.0-0.1); Basophils % 0.6 %; Eosinophils # 0.1 10^3/uL (0.0-0.8); Eosinophils % 1.3 %; Hematocrit 32.5 % (37.0-47.0); Hemoglobin 9.8 g/dL (11.5-15.3); Lymphocytes # 0.8 10^3/uL (0.8-4.8); Lymphocytes % 10.5 %; Mean Corpuscular HGB Conc 30.2 g/dL (30.0-36.0); Mean Corpuscular Hemoglobin 28.1 pg (28.0-34.0); Mean Corpuscular Volume 93.1 fl (81-99); Mean Platelet Volume 10.9 fL (7.4-10.4); Monocytes # 0.6 10^3/uL (0.2-0.9); Monocytes % 8.1 %; Neutrophils # 6.19 10^3/uL (1.8-7.7); Neutrophils % 79.2 %; Nucleated Red Blood Cells % 0 %; Platelet Count 221 10^3/cmm (130-400); Red Blood Count 3.49 10^6/uL (4.1-5.3); Red Cell Distribution Width 15.8 % (12.1-15.1); White Blood Count 7.8 10^3/uL (4.0-10.0)
[2021-06-02 03:20] LABS: Anion Gap 9.1 (5-19); Blood Urea Nitrogen 10 mg/dL (8-23); Calcium 8.2 mg/dL (8.5-10.5); Carbon Dioxide 31 mmol/L (22-29); Chloride 106 mmol/L (98-107); Creatinine Clr Calc Pharmacy 68.0281; Glucose 133 mg/dL (65-115); Osmolality Calculated 295 mOsm/kg (285-295); Potassium 4.1 mmol/L (3.5-5.1); Sodium 142 mmol/L (136-145)
--- NOTE | 2021-06-02 08:10 | PC.PHAR ---
pt states she takes care of her own medications-pt brought in med list of her medications she takes
[2021-06-02] MEDS: pantoprazole DR 40 mg Tablet PO (08:12)
[2021-06-02] MEDS: cholecalciferol (vitamin D3) 1,000 unit Tablet 1000 UNIT PO (08:12)
[2021-06-02] MEDS: citalopram 20 mg Tablet PO (08:12)
[2021-06-02] MEDS: cyanocobalamin 1,000 mcg Tablet 500 MCG PO (08:13)
[2021-06-02] MEDS: aspirin 325 mg EC Tablet PO (08:14)
[2021-06-02] MEDS: multivitamin therapeutic Tablet 1 TAB PO (08:14)
[2021-06-02] MEDS: iron polysaccharide complex 150 mg Capsule PO (08:15)
[2021-06-02] MEDS: oxyCODONE 5 mg IR Tab/Cap PO (08:25)
[2021-06-02] MEDS: calcium carbonate 500 mg Chew Tablet 1000 MG PO (09:56)
[2021-06-02] MEDS: chlorhexidine gluconate 0.12% Btl 473 mL 30 ML MUCOUS MEM (09:56)
[2021-06-02] MEDS: mupirocin oint 22 gm 1 APPLIC NASAL (10:01)
[2021-06-02] MEDS: vancomycin 1,000 MG in sodium chloride 0.9% 250 ML 250 MG IV (10:35)
[2021-06-02] MEDS: calcitonin nasal 200 unit/spray 3.7 mL Btl 1 SPRAY NASAL (12:08)
[2021-06-02] MEDS: CELEcoxib 200 mg Capsule PO (12:09)
--- NOTE | 2021-06-02 13:20 | PM.DCS ---
Discharge Providers Date of Admission: 06/01/21 16:20 Date of Discharge: June 02, 2021 Attending Provider at Admission: China Lucero MD Attending Provider at Discharge: China Lucero MD Primary Care Provider: DELIA Figueroa Diagnoses at Discharge Discharge Diagnosis (1) Primary osteoarthritis of right knee: Status: Acute (2) History of total right knee replacement: Status: Acute Permanent problem details: Right total knee arthroplasty with supplementation to the medial collateral ligament utilizing #5 Force Fiber Implants: The [place] total knee system with a size 4 triathlon beaded posterior stabilized femur right, a triathlon titanium tibial component size 5 beaded, a triathlon X3 posterior stabilized tibial bearing insert size 5 X 13 mm and a beaded triathlon titanium asymmetric patella size 35 x 10 mm Reason for Visit Reason for Visit: left total knee arthorplasty Hospital Course Hospital Course The patient was admitted under observation status to the hospital following same-day right total knee arthroplasty. Her surgical procedure was uneventful. She was comfortable with oral pain medications on the first postoperative day. She had no complications. Plan was for her to be discharged to home, and this was scheduled for her. Upon evaluation, the patient is neurologically intact. Her wound is benign. There is no evidence of complication. She is ready to be discharged home and is independent working with physical therapy. Physical Exam Const: COMMON NORMALS: no acute distress, average body habitus, patient oriented x3 and alert GENERAL APPEARANCE: cooperative and comfortable ORIENTATION/CONSCIOUSNESS: Yes awake HENMT: COMMON NORMALS: normocephalic and atraumatic HEAD & SCALP: normocephalic and atraumatic Eye: GENERAL EYE: appearance normal, both eyes and all related structures Chest: COMMONS NORMALS: normal inspection of the chest Resp: COMMON NORMALS: normal respiratory effort EFFORT & INSPECTION: Yes able to speak in complete sentences and Yes symmetric chest movement Extremity: RIGHT LOWER EXTREMITY: Yes knee joint Right knee: Yes inspection (No evidence of drainage or infection.), Yes palpation (Minimal tenderness.), Yes ROM (Not evaluated.) and Yes neurovascular exam (Intact distally. No evidence of DVT) Neuro: COMMON NORMALS: patient oriented x3 SENSORIUM/ORIENTATION: Yes alert Psych: COMMON NORMALS: mental status grossly normal APPEARANCE: Yes grossly normal ATTITUDE: Yes calm and Yes engaged ATTENTION/CONCENTRATION: Yes attention grossly intact Skin: COMMON NORMALS: no rashes or lesions noted GENERAL SKIN EXAM: no rashes or lesions noted Urinary Catheter Management^: F: Cath Placed During This Visit: yes, but has since been removed by the nurse Reason for Continuing Indwelling Catheter: Does Not Meet Criteria Urinary Catheter Date of Insertion: 06/01/21 Urinary Catheter Time of Insertion: 13:30 Date Urinary Catheter Removed: 06/02/21 Time Urinary Catheter Discontinued: 06:24 Discharge Data Data Completed and Pending: Completed Studies During Hospitalization Category Date Time Status XR knee RT 1-2V 7 3560 Stat Exams 06/01/21 16:25 Completed Labs from last 24 hours 06/02/21 06/02/21 02:10 02:10 WBC 7.8 RBC 3.49 L Hgb 9.8 L Hct 32.5 L MCV 93.1 MCH 28.1 MCHC 30.2 RDW 15.8 H Plt Count 221 MPV 10.9 H Neut % (Auto) 79.2 Lymph % (Auto) 10.5 [place] % (Auto) 8.1 Eos % (Auto) 1.3 Baso % (Auto) 0.6 Neut # (Auto) 6.19 Lymph # (Auto) 0.8 [place] # (Auto) 0.6 Eos # (Auto) 0.1 Baso # (Auto) 0.1 Nucleated RBC % (a uto) 0 Nucleated RBCs # 0.0 Sodium 142 Potassium 4.1 Chloride 106 Carbon Dioxide 31 H Anion Gap 9.1 BUN 10 Creatinine 0.6 GFR Calculation Not Reportable Glucose 133 H Calculated Osmolal ity 295 Calcium 8.2 L Vitals: Last Vital Signs Temp 97.8 F 06/02/21 11:36 Pulse 59 L 06/02/21 11:36 Resp 18 06/02/21 11:36 BP 103/57 06/02/21 11:36 Pulse Ox 91 06/02/21 11:36 Discharge Plan Discharge Patient Disposition: Home Health Service Condition: Stable Prescriptions: New oxycodone 5 mg Tablet 5 mg PO Q4H PRN (Reason: Moderate Pain) 7 Days Qty: 30 RF: 0 celecoxib 200 mg Capsule 200 mg PO DAILY Qty: 30 RF: 0 acetaminophen 500 mg Tablet 1,000 mg PO Q8H Qty: 0 RF: 0 aspirin 325 mg Tablet,Delayed Release (Dr/Ec) 325 mg PO DAILY Qty: 0 RF: 0 Continued (DME) BIPAP Mask and Tubing See Rx Instructions .Route .MEDSUPPLY Qty: 1 RF: 0 (DME) blood-glucose meter Kit See Rx Instructions .ROUTE .MEDSUPPLY Qty: 30 RF: 11 cyanocobalamin (vitamin B-12) 500 mcg tablet 500 mcg PO QAM RF: 0 albuterol sulfate [ProAir HFA] 90 mcg/actuation HFA aerosol inhaler 2 puff INHALATION QID PRN (Reason: shortness of breath or wheezing) 30 Days Qty: 8.5 RF: 5 citalopram 20 mg tablet 20 mg PO QAM RF: 0 calcitonin (salmon) 200 unit/actuation spray,non-aerosol 1 spray intranasal (ALT) DAILY RF: 0 bumetanide 0.5 mg tablet 0.5 mg PO BID RF: 0 nystatin 100,000 unit/gram cream 1 applic topical DAILY PRN (Reason: uses after bath) RF: 0 omeprazole 40 mg capsule,delayed release(DR/EC) 40 mg PO QAM RF: 0 biotin 500 mcg Capsule 500 mcg PO QAM RF: 0 Calcium 600 + D(3) 600 mg(1,500mg) -400 unit Tablet 1 tab PO QAM RF: 0 Vitamin D3 125 mcg (5,000 unit) Tablet 125 mcg PO QAM RF: 0 Discharge Orders: Discharge Order (Routine); Ordered 06/02/21 Ordered By: China Lucero Other Ambulatory Orders: DME: Walker (Order) Location: None Selected Ordered By: China Lucero Referrals: China Lucero MD [Physician] - 06/15/21 8:30 am Discharge Diet: Advance as tolerated and Usual diet Discharge Activity: Increase activity as tolerated, Limit activity as instructed, Use walker/crutches as instructed and As per PT/OT instructions Patient Instructions: Opioid Safety Activity Restrictions/Additional Instructions: Ice and elevation to right knee. Gait training, strengthening, and range of motion with physical therapy. Maintain dressing until you are seen in the office. Discharge Attestations Time Spent in Discharge Care*: greater than 30 min Specific Discharge Activities: educating patient, documenting/other paperwork and evaluating patient/reviewing data Quality Metrics Clinical Quality Measures During this hospital stay, did patient experience: None Coding Level of Care Code Acute Chg FW DC note Exam Comprehensive Diagnoses Primary osteoarthritis of right knee M17.11 History of total right knee replacement Z96.654
[2021-06-02] MEDS: ondansetron 2 mg/ML SDV 2 mL 4 MG IVP (15:36)
--- NOTE | 2021-06-02 16:02 | PC.NURSE ---
patient verbalized understanding of discharge instructions, home medications, and follow up appointments. HOME delivered patients walker to the bedside.
--- NOTE | 2021-06-02 16:43 | PC.RESP ---
PULMONARY REHAB INFORMATION SENT TO PATIENT.
--- NOTE | 2021-06-05 12:05 | PC.SOCIAL ---
discharge follow up call made, spoke with patients daughter. daughter reports she was just out of her head yesterday asked daughter to give more details. she said she was confused. proposal writer discussed with daughter that this could be caused from the oxycodone. went over medications list with daughter. patient hasn't been taking tylenol or celebrex. advised both of those would help with pain. daughter reports patient has taken before and she thinks the celcoxib caused tingling and her skin to burn. advised to take and if she has those symptoms to call Dr. Lucero's office. patient is using walker successfully. daughter reports they are trying to keep knee iced and elevated.
== END 2021-06-02 16:04 | disposition home health service (06) ==
LOC: MEDSURG 16:21
PROVIDERS: Admitting Provider Specialist; PCP Nurse Practitioner Family; Visit Provider Specialist
PROC: (CPT 27447; principal; 2021-06-01 12:30)
DX: M17.11 Unilateral primary osteoarthritis, right knee (principal); J44.9 Chronic obstructive pulmonary disease, unspecified; I10 Essential (primary) hypertension; E11.9 Type 2 diabetes mellitus without complications; E66.01 Morbid (severe) obesity due to excess calories; Z68.36 Body mass index [BMI] 36.0-36.9, adult; G47.33 Obstructive sleep apnea (adult) (pediatric); Z87.891 Personal history of nicotine dependence
CPT/HCPCS: 27447; 36415; 51702; 64447; 73560; 73562; 76942; 80048; 85025; 93005; 96365; 97110; 97116; 97161; 97165; C1776; C9290; G0378; J0690; J2250; J2405; J2704; J2795; J3370; J3490; J7030; J7050

== ENCOUNTER → 2021-06-15 08:32 | Outpatient (BNVA) | payer MEDICARE, MEDICAID, SELFPAY | PROVIDERS: PCP Nurse Practitioner Family; Visit Provider Specialist | DX: Z96.651 Presence of right artificial knee joint (principal) | CPT/HCPCS: 73560; 73565 ==

== ENCOUNTER → 2021-07-13 11:10 | Outpatient (BNVA) | payer MEDICARE, MEDICAID, SELFPAY | PROVIDERS: PCP Nurse Practitioner Family; Visit Provider Specialist | DX: Z96.651 Presence of right artificial knee joint (principal) | CPT/HCPCS: 73560; 73565 ==

== ENCOUNTER → 2021-09-13 09:47 | Outpatient (BNVA) | payer MEDICARE, MEDICAID, SELFPAY | PROVIDERS: PCP Nurse Practitioner Family; Visit Provider Specialist | DX: Z96.651 Presence of right artificial knee joint (principal); M17.12 Unilateral primary osteoarthritis, left knee | CPT/HCPCS: 73560; 73565 ==

== ENCOUNTER → 2021-10-04 09:45 | Outpatient (BNVA) | payer MEDICARE, MEDICAID, SELFPAY | PROVIDERS: PCP Nurse Practitioner Family; Visit Provider Specialist | DX: Z96.651 Presence of right artificial knee joint (principal); M17.12 Unilateral primary osteoarthritis, left knee | CPT/HCPCS: 73560; 73565 ==

== ENCOUNTER → 2021-10-17 09:04 | Day surgery (SDC) | payer MEDICARE, MEDICAID, SELFPAY | PROVIDERS: PCP Nurse Practitioner Family; Visit Provider Specialist | DX: Z01.818 Encounter for other preprocedural examination (principal) | CPT/HCPCS: 93005 ==

== ENCOUNTER → 2021-10-18 10:07 | Outpatient (BNVA) | payer MEDICARE, MEDICAID, SELFPAY | PROVIDERS: PCP Nurse Practitioner Family; Visit Provider Specialist | DX: M17.12 Unilateral primary osteoarthritis, left knee (principal) | CPT/HCPCS: 87635 ==

== ENCOUNTER 2021-10-24 15:20 | Observation (INO) | payer MEDICARE, MEDICAID, SELFPAY ==
--- NOTE | 2021-10-17 12:32 | ECG_ITS ---
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 Measurements Intervals [place] Rate: 64 P: -5 FL: 199 QRS: -15 QRSD: 113 T: 3 QT: 408 QTc: 421 Interpretive Statements SINUS RHYTHM LOW QRS VOLTAGE IN PRECORDIAL LEADS [QRS DEFLECTION < 1.0 mV IN CHEST LEADS] VOLTAGE CRITERIA FOR LVH POSSIBLE ANTERIOR MYOCARDIAL INFARCTION , PROBABLY OLD Compared to ECG 05/26/2021 12:52:47 Sinus bradycardia no longer present First degree AV block no longer present Myocardial infarct finding still present Electronically Signed On 10-17-2021 17:12:01 DUST OPERATOR by Margot Sanchez M.D. [id number]
[2021-10-17 12:51] VITALS: BMI 35.5
--- NOTE | 2021-10-17 13:34 | ANES.PREANE2 ---
Pre-Anesthetic Assessment Height/Weight: Height 1.63 m Weight 93.894 kg Preop Diagnosis: Primary osteoarthritis left knee Operation Date: 10/24/21 10:25 Proposed Procedures p Total Knee Arthroplasty(Left) - China Lucero MD Was Beta Amy taken within 24 hours: N/A Was Clonidine taken within 24 hours: N/A Social No alcohol and No tobacco Exam alert, oriented x 3 and regular rate & rhythm Wheezing left upper lung Airway Submandibular: within normal limits Cervical ROM: within normal limits Mallampati: Class I Dentition: false Pulmonary Chronic Obstructive Pulmonary Disease and Sleep Apnea Denies recent cough or cold CV/HEM Anemia and Hypertension None reported METS < 4 due to pain Hepatic None reported GI Gastroesophageal Reflux Disease Metabolic Diabetes Mellitus Often has hypoglycemia Musc/skel Osteoarthritis/DJD Neuropsych None reported Anesthetic Plan ASA status: 3 (Obese female with DYLAN, HTN, and diabetes with functional capacity reduction due to pain ) Anesthesia: Anesthesia Evaluation, Eval. for regional block, General and Regional (specify below) (Adductor canal block) Other: We discussed risk and benefits of general vs spinal anesthesia including DVT risk, infection, paralysis/catastrophic nerve injury, back bruising/pain, PDPH, conversion to general in case of spinal, PONV, sore throat (sometimes severe), corneal abrasion, positioning and peripheral nerve injuries, life threatening allergic reaction, post operative ICU admission requiring prolonged intubation, stroke, heart attack, , and rare incidences of recall. We discussed risk and benefits of nerve block for post op pain control including management of pain and titration of pain medications as signs/symptoms of nerve block wearing off begin to appear and/or prior bed. We discussed risk of failed nerve block, vascular injury or other vital structure injury, abscess/infection, LAST, nerve injury?. Patient consents to proceed with spinal anesthesia with adductor canal block for post op pain control. Risk of > 500 ml blood loss (7ml/kg in children): No Medications/Allergies Home Medications Medication Instructions Recorded Confirmed Last Taken Type blood-glucose meter #30 ea 08/18/20 10/04/21 Unknown Rx BIPAP Mask and Tubing #1 ea 11/10/20 10/04/21 Unknown Rx albuterol sulfate 90 mcg/actuation 2 puff INHALATION QID PRN 30 Days 03/14/21 10/17/21 Unknown Rx aerosol inhaler (ProAir HFA) #8.5 gm cyanocobalamin (vitamin B-12) 500 500 mcg PO QAM 05/19/21 10/17/21 Unknown History mcg tablet nystatin 100,000 unit/gram topical 1 applic TOPICAL DAILY PRN 05/26/21 10/17/21 Unknown History cream acetaminophen 500 mg tablet 1,000 mg PO Q8H #0 tab 06/02/21 10/17/21 Unknown Rx aspirin 325 mg tablet,delayed 325 mg PO DAILY #0 tab 06/02/21 10/17/21 Unknown Rx release biotin 500 mcg capsule 500 mcg PO QAM 06/02/21 10/17/21 Unknown History calcium carbonate 600 mg (1,500 1 tab PO QAM 06/02/21 10/17/21 Unknown History mg)-vitamin D3 400 unit tablet (Calcium 600 + D(3)) cholecalciferol (vitamin D3) 125 125 mcg PO QAM 06/02/21 10/17/21 Unknown History mcg (5,000 unit) tablet (Vitamin D3) calcitonin (salmon) 200 See Rx Instructions .ROUTE 06/15/21 10/17/21 Unknown Rx unit/actuation nasal spray .COMPLEX #3.7 milliliter omeprazole 40 mg capsule,delayed See Rx Instructions .ROUTE 07/11/21 10/17/21 Unknown Rx release .COMPLEX #30 cap citalopram 20 mg tablet 20 mg PO QAM #30 tab 07/20/21 10/17/21 Unknown Rx bumetanide 0.5 mg tablet 0.5 mg PO BID #60 tab 09/21/21 10/17/21 Unknown Rx Allergies Allergy/AdvReac Type Severity Reaction Status Date / Time No Known Allergies Allergy Verified 10/04/21 09:48 [facility] Anesthesia Medical History COPD (chronic obstructive pulmonary disease) DM type 2 (diabetes mellitus, type 2) Edema of both lower extremities Essential hypertension Hypertension screen Influenza vaccine needed Left thyroid nodule DYLAN (obstructive sleep apnea) Osteoarthritis of knees, bilateral Vitamin B 12 deficiency Vitamin D deficiency Family History Other COPD (chronic obstructive pulmonary disease) Social History Smoking and tobacco status: former smoker Data Anesthesia Cardiac Studies: No Data to Display
[2021-10-17 13:42] LABS: Add Urine Microscopic? NO; Charge for UA Resulting for Rev
[2021-10-17 14:03] LABS: Basophils # 0.1 10^3/uL (0.0-0.1); Basophils % 0.8 %; Eosinophils # 0.1 10^3/uL (0.0-0.8); Eosinophils % 2.2 %; Hematocrit 35.6 % (37.0-47.0); Hemoglobin 10.9 g/dL (11.5-15.3); Lymphocytes # 1.3 10^3/uL (0.8-4.8); Lymphocytes % 19.9 %; Mean Corpuscular HGB Conc 30.6 g/dL (30.0-36.0); Mean Corpuscular Hemoglobin 26.2 pg (28.0-34.0); Mean Corpuscular Volume 85.6 fl (81-99); Mean Platelet Volume 11.3 fL (7.4-10.4); Monocytes # 0.4 10^3/uL (0.2-0.9); Monocytes % 6.6 %; Neutrophils # 4.56 10^3/uL (1.8-7.7); Neutrophils % 70.2 %; Nucleated Red Blood Cells % 0 %; Platelet Count 295 10^3/cmm (130-400); Red Blood Count 4.16 10^6/uL (4.1-5.3); Red Cell Distribution Width 16.7 % (12.1-15.1); White Blood Count 6.5 10^3/uL (4.0-10.0)
[2021-10-17 14:28] LABS: Alanine Aminotransferase 9 U/L (0-33); Albumin Level 4.1 g/dL (3.5-5.2); Alkaline Phosphatase 87 IU/L (35-105); Anion Gap 11.9 (5-19); Aspartate Amino Transferase 19 U/L (0-32); Blood Urea Nitrogen 11 mg/dL (8-23); Calcium 9.2 mg/dL (8.5-10.5); Carbon Dioxide 30 mmol/L (22-29); Chloride 104 mmol/L (98-107); Globulin 3.3 g/dL (1.3-4.6); Glucose 93 mg/dL (65-115); Osmolality Calculated 293 mOsm/kg (285-295); Potassium 3.9 mmol/L (3.5-5.1); Sodium 142 mmol/L (136-145); Total Bilirubin 0.2 mg/dL (0.15-1.2); Total Protein 7.4 g/dL (6.6-8.7)
[2021-10-17 14:32] LABS: Bilirubin Urine Neg (Negative); Blood Urine Neg (Negative); Glucose Urine UA Norm (Normal); Ketones Urine Negative (Negative); Nitrate Urine Negative (Negative); Protein Urine Neg (Negative); Specific Gravity, Urine 1.015 (1.005-1.030); Urine Appearance Clear (CLEAR); Urine Color Yellow (Yellow); pH Urine 5 (5-7)
[2021-10-17 14:33] LABS: Leukocyte Esterase Urine Negative (Negative); Urobilinogen Urine Neg (Negative)
[2021-10-24] VITALS (20 sets, daily range): BP systolic 132–159; BP diastolic 57–86; PULSE 60–92; RESP 16–22; TEMP 36.1–37.2; O2SAT 90–95
[2021-10-24 07:05] LABS: Glucose Point of Care 91 mg/dL (70-110)
[2021-10-24 09:02] LABS: Adenovirus Not Detected (NOT DETECT); Chlamydia Pneumoniae Not Detected (NOT DETECT); Coronavirus 229E,HKU1,NL63,OC4 Not Detected (NOT DETECT); Human Metapneumovirus Not Detected (NOT DETECT); Human Rhinovirus/Enterovirus Not Detected (NOT DETECT); Influenza A Not Detected (NOT DETECT); Influenza A H1 Not Detected (NOT DETECT); Influenza A H1-2009 Not Detected (NOT DETECT); Influenza A H3 Not Detected (NOT DETECT); Influenza B Not Detected (NOT DETECT); Mycoplasma Pneumoniae Not Detected (NOT DETECT); Parainfluenza Virus Type 1 Not Detected (NOT DETECT); Parainfluenza Virus Type 2 Not Detected (NOT DETECT); Parainfluenza Virus Type 3 Not Detected (NOT DETECT); Parainfluenza Virus Type 4 Not Detected (NOT DETECT); Respiratory Syncytial Virus A Not Detected (NOT DETECT); Respiratory Syncytial Virus B Not Detected (NOT DETECT); SARS-COV-2 Not Detected (NOT DETECT)
[2021-10-24] MEDS: acetaminophen 1,000 MG/100 ML PIGGYBACK 400 MG IV ×2 (09:15→16:18)
[2021-10-24] MEDS: sodium chloride 0.9% 1,000 ML 30 ML IV (09:16)
[2021-10-24] MEDS: CELEcoxib 200 mg Capsule 400 MG PO (09:16)
--- NOTE | 2021-10-24 09:26 | P.HPUD_ITS ---
Surgery/Procedure H&P Update DATE OF PROCEDURE: October 24, 2021 DATE H&P PERFORMED: 10/04/21 H&P UPDATE INFORMATION: I have reviewed H&P completed within last 30 days, I have examined patient prior to procedure, No changes to prior documentation and H&P is in [facility] EMR on date indicated PREOP DIAGNOSIS: Primary osteoarthritis left knee PLANNED PROCEDURE: Operation Date: 10/24/21 09:00 Proposed Procedures p Total Knee Arthroplasty(Left) - China Lucero MD Related Problem List Diagnoses (1) Primary localized osteoarthritis of left knee:
--- NOTE | 2021-10-24 09:30 | P.ANESUD_ITS ---
Pre-Anesthetic Update Pre-Anesthetic Assessment: Date of Surgery/Procedure: 10/24/21 Preop Dinora gnosis: Primary osteoarthritis left knee Proposed Procedure: Operation Date: 10/24/21 09:00 Proposed Procedures p Total Knee Arthroplasty(Left) - China Lucero MD Any changes to Pre-Anesthetic Assessment?: No Changes from Pre-Anesthetic Assessment: no Last Intake: Intake Last Liquid Date 10/23/21 Last Liquid Time 14:00 Last Solid Date 10/23/21 Last Solid Time 14:00 Labs Last 48hrs: COVID Results 10/24/21 06:22 Coronavirus 229E ( PCR) Not detected SARS-CoV-2 (PCR) Not detected Vitals: Temperature 98.2 F 10/24/21 07:05 Temperature Source Temporal Artery S can 10/24/21 07:05 Pulse Rate 92 10/24/21 07:05 Pulse Rhythm 10/24/21 06:51 Pulse Strength 3+ Normal 10/24/21 06:51 Respiratory Rate 18 10/24/21 07:05 Blood Pressure 158/76 10/24/21 07:05 Blood Pressure Jessica n 103 10/24/21 07:05 Pulse Oximetry 92 10/24/21 07:05 Oxygen Delivery Me thod 10/24/21 07:05 Exam: Pre-Anes Outpt Exam: alert, oriented x 3, clear to auscultation bilaterally and regular rate & rhythm Cardiac Studies: No Data to Display
--- NOTE | 2021-10-24 09:49 | ANES.PROC ---
Anesthesia Procedures Procedure/Date: 10/24/21 Nerve Block ^: Nerve Block 1: Main Anesthesia: spinal anesthesia block Time Out Performed: Yes Consent: requested by attending/covering physician, from patient, risks and benefits reviewed and patient agrees to proceed Nerve block location: adductor canal (L) Anesthesia monitors applied: pulse oximetry, EKG, BP cuff and oxygen Nerve block position: supine Anesthetic Used: ropivicaine 0.5% (30 ml) and with decadron (4 mg) Ultrasound used to: visualize and ID femerol nerve Nerve Stimulator Used?: No Interscalene/Femoral BLK: 4 stimuplex 21 g needle used for position and inplane approach, visualize local anesthetic spread and no vascular puncture identified Injection: neg aspiration of heme Patient Tolerated Procedure: well and no complications Complications: none
[2021-10-24] MEDS: vancomycin 1,000 MG SDV 1000 MG XX (10:38)
[2021-10-24] MEDS: ceFAZolin 1,000 mg SDV 2000 MG IRRIGATION (10:39)
--- NOTE | 2021-10-24 12:43 | XR_ITS ---
WS: [id number] XR knee LT 1-2V [id number] REASON FOR EXAM: Status post total knee arthroplasty FINDINGS: Total left knee arthroplasty. Components of the prosthesis are in proper position and alignment. Normal knee joint alignment. No focal bony abnormality. XR/XR knee LT -2V [id number] IMPRESSION: Total left knee arthroplasty without abnormality.
--- NOTE | 2021-10-24 12:53 | P.OP_ITS ---
Operative Report Date of procedure: October 24, 2021 Pre-op diagnosis: Primary osteoarthritis left knee Post-op diagnosis: same Post-op diagnosis: Same Post-op findings: Severe degenerative osteoarthritis left knee with large osteophytes Procedure done: Left total knee arthroplasty Implants: The Dina total knee system with a size 4 triathlon beaded posterior stabilized femur left, a triathlon titanium tibial component size 5 beaded, a triathlon X3 posterior stabilized tibial bearing insert size 5 X 13 mm and a beaded triathlon titanium asymmetric patella size 32 x 10 mm Specimens removed/disposition: Bone, disposed of Pathology: none sent Surgeon: China Lucero Sourcing Analyst: [facility] operating room technicians Anesthesia: MAC (With spinal and supplemental regional block, ASA 3) Estimated blood loss (mL): 20 Tourniquet time (min): 91 At 300 mmHg IV fluids (mL): 1,000 Urine output (mL): 150 Complications: None Findings: Severe degenerative osteoarthritis with large osteophytes. No significant flexion contracture. Condition: stable Disposition: PACU (Then to floor for postoperative rehabilitation and pain management as well as medical observation) Brief History: This 75-year-old woman presented to the office with severe right knee pain which was incapacitating.? She had significant varus deformity as well as a flexion contracture..? She was unable to ambulate or perform reasonable activities of daily living.? None of these activities were able to be accomplished comfortably. She was unresponsive to conservative measures and wished to proceed with right total knee arthroplasty.? Risks and complications were discussed.? Consents were signed preoperatively, and questions were answered.? The patient wished to proceed. Procedure: The patient was brought to the operating theater, and after undergoing adequate spinal anesthesia supplemented with regional block and MAC, ASA 3, the left lower extremity was prepped with Dura-Prep and draped in usual fashion following placement of a tourniquet high on the leg. The leg was then draped free. Following prepping and draping, the leg was exsanguinated, and the tourniquet was elevated to 300 mmHg for a total tourniquet time of 91 minutes.? Prior to elevation of the tourniquet, but following exposure of the site of surgery, a surgical pause was performed. At the time of the surgical pause, we confirmed the site and side of surgery. Additionally, we confirmed the appropriate and timely administration of preoperative antibiotics, Anceg 2 g. and Transexemic acid 1 g. The availability of equipment was confirmed, and the patient's identity was verbalized as well. Following the surgical pause, an incision was made centering over the patella continuing proximally and distally as necessary to allow access to the knee joint. Dissection continued through skin and soft tissues using a scalpel. Hemostasis was obtained using electrocautery. The skin incision was followed by a median parapatellar arthrotomy. The leg was extended and the patella was everted. Following this, the leg was returned to flexed position.? The distal f emur was exposed, and a drill hole was made in this for placement of the distal femoral jig. The distal femoral jig was set at 5? of valgus. The distal femoral cutting block was then placed in appropriate position, and an hortensia wing was used to confirm an appropriate amount of distal femur would be resected.? The distal femoral resection was accomplished with 8 mm of bone being resected distally.? After the distal femoral resection had been accomplished, the femur was measured and it measured a size 4.? Medial lateral dimension also measured a size 4.? A size 4 femoral cutting block was placed in position, and we were then able to accomplish the anterior, posterior and chamfer cuts. This jig was then removed and the notch guide was placed in position. With the notch guide in appropriate position, the notch was excised including resection of the anterior and posterior cruciate ligaments. This notch was to allow for the posterior stabilized femoral component. At this point, the femur was prepared and attention was directed to the proximal tibia.? The femur was noted to be osteopenic, but with the fit of the femoral component, it was felt that we could use a press fitted prosthesis. The posterior knee retractor was placed along with medial and lateral retractors. Further resection of the menisci was accomplished as we had better visualization. A complete meniscectomy was performed both medially and laterally with care being taken to protect the popliteus. Retractors were then placed so that the proximal tibia was well visualized. A drill hole was then made in the tibia for placement of the intramedullary guide. This guide was placed so that approximately 2 mm of bone would be resected from the deficient medial tibial plateau. The intramedullary guide was utilized supplemented with an extramedullary guide to assure appropriate alignment for the proximal tibial resection. The proximal tibial jig was then evaluated, pinned in position, and the proximal tibial resection was accomplished without difficulty. The jig was removed, and the proximal tibia was measured. It measured a size 5. We then attempted a trial reduction with a size 5 by 9 mm.? Osteophytes were also re moved from the tibia.? The femoral component was placed in position for the trial reduction, and the knee was placed through range of motion.? With this, there was appropriate patellar tracking. Extension was noted to be full as well.? After the knee was manipulated, we were able to insert a size 5 x 11 mm followed by a 5 x 13 mm insert.? With a 5 x 13 mm insert, we had full extension.? With this we had excellent varus valgus alignment.? The knee was stable to varus valgus stress as well.? Therefore, this was the chosen component.? There was full extension and flexion without lift off and the rotation of the tibia was marked.? Alignment was checked from the hip to the ankle, and this was noted to be appropriate as well. Attention was then directed to the patella. The patella was measured with a caliper.? We resected sufficient patella to leave approximately 14 mm of patella remaining.? Measurements of the patella then indicated that a size asymmetric 32 mm x 10 mm was the appropriate patellar size. We then placed the jig to drill for the 3 pegs of the press-fit patella, and these drill holes were made without incident. A trial patella was then placed, and the knee was placed through range of motion. The patella was noted to track nicely without evidence of subluxation.? The femur was prepared for a press-fit femur by drilling 2 holes for the femoral pegs.? All trial components were subsequently removed. The tibial tray was then pinned into position, and we broached the tibia for the stem of the tibial component.? Subsequently, 4 drill holes were made for placement of the press-fit tibia.? This was accomplished without difficulty. Care was taken to assure appropriate rotation of the tibia as well as appropriate position on the proximal tibia. The tibial tray was completely seated on the proximal tibia. Following broaching, the tibial guide was removed, and all surfaces were copiously irrigated. The surfaces were then dried and a bone plug was placed into the distal femur.? Exparel was also injected at this point. The Tritanium tibia was impacted into position.? The beaded femur was then impacted into position in a cementless fashion. The tibial insert was placed. The patella was pressed into position with a patellar clamp.? The knee was then copiously irrigated and suctioned dry. Attention was then directed to closure. Closure was accomplished with 0 Vicryl in the fascial tissues.? Following this, a 2-0 Monocryl was used in the subcutaneous tissues, and the skin was closed with skin mai.? The skin was noted to be quite fragile, and care was taken to assure an excellent subcutaneous as well as skin closure.? A sterile dressing was then placed consisting of Dermabond Prineo, Telfa, 4x4's, sterile soft roll, and an Russel wrap. The patient was returned the Recovery Room in a satisfactory condition. X-rays were obtained and reviewed there.? The patient will be discharged to the floor for postoperative rehabilitation and pain management. Related Problem List Diagnoses (1) Primary localized osteoarthritis of left knee:
--- NOTE | 2021-10-24 13:28 | PC.NURSE ---
pt received from pacu. pt awake and oriented. ice to left knee . dressing dry/intact. pt taking soda and crackers. family at bedside. call light in reach and rails up.
--- NOTE | 2021-10-24 15:08 | SUR.PHASEI ---
report called to natali
--- NOTE | 2021-10-24 15:26 | ANE.PACU2 ---
Inpatient post-anesthesia follow up: Airway intact: Yes Vital signs: Temperature 97 F Pulse Rate 60 Respiratory Rate 18 Blood Pressure 143/57 Pulse Oximetry 91 Oxygen Delivery Me thod Nasal Cannula Oxygen Flow Rate 3 Fraction of Inspir ed Oxygen Hydration adequate: Yes Nausea and vomiting: No Pain level: 2 Mental status: Baseline
[2021-10-24] MEDS: oxyCODONE 5 mg IR Tab/Cap PO (16:19)
[2021-10-24] MEDS: chlorhexidine gluconate 0.12% Btl 473 mL 30 ML MUCOUS MEM ×2 (17:40→19:58)
[2021-10-24] MEDS: bumetanide 1 mg Tablet 0.5 MG PO (17:40)
[2021-10-24] MEDS: iron polysaccharide complex 150 mg Capsule PO (17:40)
[2021-10-24] MEDS: calcium carbonate 500 mg Chew Tablet 1000 MG PO (17:40)
[2021-10-24] MEDS: sennosides-docusate Tablet 2 TAB PO (17:41)
[2021-10-24] MEDS: mupirocin oint 22 gm 1 APPLIC NASAL (17:41)
[2021-10-24] MEDS: CELEcoxib 200 mg Capsule PO (19:58)
[2021-10-25 00:11] VITALS: RESP 18
[2021-10-25] MEDS: oxyCODONE 5 mg IR Tab/Cap PO ×2 (00:11→12:29)
[2021-10-25] MEDS: acetaminophen 1,000 MG/100 ML PIGGYBACK 400 MG IV ×2 (01:40→08:01)
[2021-10-25 04:00] VITALS: BP 129/73; PULSE 62; RESP 16; TEMP 36.6; O2SAT 95
[2021-10-25 05:52] LABS: Basophils % 0.3 %; Eosinophils % 0.1 %; Hematocrit 29.5 % (37.0-47.0); Hemoglobin 8.9 g/dL (11.5-15.3); Lymphocytes % 13.3 %; Mean Corpuscular HGB Conc 30.2 g/dL (30.0-36.0); Mean Corpuscular Hemoglobin 26.1 pg (28.0-34.0); Mean Corpuscular Volume 86.5 fl (81-99); Mean Platelet Volume 11.1 fL (7.4-10.4); Monocytes # 0.8 10^3/uL (0.2-0.9); Monocytes % 10.7 %; Neutrophils % 75.3 %; Nucleated Red Blood Cells % 0 %; Platelet Count 216 10^3/cmm (130-400); Red Blood Count 3.41 10^6/uL (4.1-5.3); Red Cell Distribution Width 16.4 % (12.1-15.1); White Blood Count 7.6 10^3/uL (4.0-10.0)
[2021-10-25 06:13] LABS: Blood Urea Nitrogen 6 mg/dL (8-23); Calcium 9.7 mg/dL (8.5-10.5); Carbon Dioxide 27 mmol/L (22-29); Chloride 105 mmol/L (98-107); Glucose 118 mg/dL (65-115); Osmolality Calculated 293 mOsm/kg (285-295); Sodium 142 mmol/L (136-145)
[2021-10-25] MEDS: citalopram 20 mg Tablet PO (06:30)
[2021-10-25] MEDS: cyanocobalamin 1,000 mcg Tablet 500 MCG PO (06:30)
[2021-10-25 08:00] VITALS: BP 137/60; PULSE 69; RESP 18; TEMP 36.6; O2SAT 90
[2021-10-25] MEDS: calcium carbonate 500 mg Chew Tablet 1000 MG PO (08:00)
[2021-10-25] MEDS: bumetanide 1 mg Tablet 0.5 MG PO (08:00)
[2021-10-25] MEDS: CELEcoxib 200 mg Capsule PO (08:00)
[2021-10-25] MEDS: iron polysaccharide complex 150 mg Capsule PO (08:01)
[2021-10-25] MEDS: pantoprazole DR 40 mg Tablet PO (08:01)
[2021-10-25] MEDS: sennosides-docusate Tablet 2 TAB PO (08:01)
[2021-10-25] MEDS: multivitamin therapeutic Tablet 1 TAB PO (08:01)
[2021-10-25] MEDS: aspirin 325 mg EC Tablet PO (08:01)
[2021-10-25] MEDS: cholecalciferol (vitamin D3) 1,000 unit Tablet 1000 UNIT PO (09:15)
[2021-10-25] MEDS: calcitonin nasal 200 unit/spray 3.7 mL Btl 1 SPRAY NASAL (09:15)
[2021-10-25] MEDS: mupirocin oint 22 gm 1 APPLIC NASAL (09:15)
[2021-10-25] MEDS: chlorhexidine gluconate 0.12% Btl 473 mL 30 ML MUCOUS MEM (09:16)
--- NOTE | 2021-10-25 10:19 | PC.CHAP ---
Pastoral Care Encounter/Spiritual Assessment Type of Contact [] Declined it security project manager visit [] Patient/Family/Request visit [] Outpatient visit [] Follow-up visit [] Physician referral [] Code/Alert x[] Routine visit [] Staff referral [] Actively dying [] Patient sleeping [] Family support [] [] Out of room [] Palliative care [] [x] Receiving care in room [] Pre-surgical visit [] Trauma [] Long length of stay [] ICU visit [] Other: Relational/Emotional Strength [] Patient feels connected with others/family/visitors/staff [] Distress [] Loneliness/isolation [] Abandonment Spirituality of Patient [] Person of Janene [] Attends Jain of their Janene [] Believes in Prayer [] Reads Bible or Adventism materials [] There are Spiritual issues to be addressed Milk Runner Interventions [] Prayer [] Active listening [] Non-anxious presence [] Spiritual/emotional support [] Crisis/trauma care [] Spiritual counseling [] Bereavement support [] Provided bereavement packet [] Provided Bible/devotional materials [] Provided toy/stuffed animal, coloring book to patient or family member [] Provided Communion [] Anointing/[place] [] Salvation [] Completed spiritual assessment [] Other: Impact on Illness or Injury [] Angry [] Fearful [] Anxious [] Often cries [] Exhaustion [] Unable to work [] Unable to attend advent [] Unable to walk/stand [] Unable to read [] Unable to drive [] Unable to eat/drink [] Unable to sleep [] Unable to be with family [] Patient intubated [] Other: Summary Time spent with patient
[2021-10-25 12:00] VITALS: BP 111/63; PULSE 69; RESP 18; TEMP 36.9; O2SAT 99
[2021-10-25 12:29] VITALS: RESP 18; O2SAT 94
--- NOTE | 2021-10-25 12:49 | P.DS_ITS ---
Discharge Providers Date of Admission: 10/24/21 15:20 Date of Discharge: October 25, 2021 Attending Provider at Admission: China Lucero MD Attending Provider at Discharge: China Lucero MD Primary Care Provider: DELIA Figueroa Diagnoses at Discharge Discharge Diagnosis (1) Primary localized osteoarthritis of left knee: Status: Acute (2) Status post total left knee replacement not using cement: Status: Acute Permanent problem details: Date of procedure: October 24, 2021 Procedure done: Left total knee arthroplasty Implants: The COCC total knee system with a size 4 triathlon beaded posterior stabilized femur left, a triathlon titanium tibial component size 5 beaded, a triathlon X3 posterior stabilized tibial bearing insert size 5 X 13 mm and a beaded triathlon titanium asymmetric patella size 32 x 10 mm Reason for Visit Reason for Visit: osteoarthritis left knee Brief History: This 76-year-old woman presented to the office with severe right knee pain which was incapacitating.? She had significant varus deformity as well as a minimal flexion contracture..? She was unable to ambulate or perform reasonable activities of daily living.? None of these activities were able to be accomplished comfortably. She was unresponsive to conservative measures and wished to proceed with left total knee arthroplasty.? Risks and complications were discussed.? Consents were signed preoperatively, and questions were answered.? The patient wished to proceed. Hospital Course Hospital Course This 76-year-old woman was admitted for same-day surgery. Surgical procedure was left total knee arthroplasty. The patient had previously undergone right total knee arthroplasty in May 2021. She did well following that surgery and wished to proceed with left total knee arthroplasty. Risks and complications were discussed with her. Consents were signed preoperatively as well. The patient underwent the procedure uneventfully. Her plans at the time of surgery were discharged the following day. She was seen in the first postoperative day. She was actually up in the chair and her personal items were packed as she was ready to leave after her lunch. She was tolerating oxycodone for pain relief. She was on aspirin for DVT prophylaxis. She was seen with her daughter. Dressings were removed, the wound was benign, and there was no evidence of infection. She was able to do an active straight leg raise uneventfully. Physical Exam Const: COMMON NORMALS: no acute distress, average body habitus, patient oriented x3 and alert GENERAL APPEARANCE: cooperative and comfortable ORIENTATION/CONSCIOUSNESS: Yes awake HENMT: COMMON NORMALS: normocephalic and atraumatic HEAD & SCALP: normocephalic and atraumatic Eye: GENERAL EYE: appearance normal, both eyes and all related structures Chest: COMMONS NORMALS: normal inspection of the chest Resp: COMMON NORMALS: normal respiratory effort EFFORT & INSPECTION: Yes able to speak in complete sentences and Yes symmetric chest movement Extremity: LEFT LOWER EXTREMITY: Yes knee joint (Postoperative dressing was dry and intact. It was removed.) Left knee: Yes inspection (Dressing intact with minimal to no drainage.), Yes palpation (No significant tenderness.), Yes ROM (Able to actively straight leg raise.) and Yes neurovascular exam (Intact distally. No evidence of DVT.) Neuro: COMMON NORMALS: patient oriented x3 SENSORIUM/ORIENTATION: Yes alert Psych: COMMON NORMALS: mental status grossly normal APPEARANCE: Yes grossly normal ATTITUDE: Yes calm and Yes engaged ATTENTION/CONCENTRATION: Yes attention grossly intact Skin: COMMON NORMALS: no rashes or lesions noted GENERAL SKIN EXAM: no rashes or lesions noted Urinary Catheter Management: Grajeda: Cath Placed During This Visit: yes, but has since been removed by the nurse Reason for Continuing Indwelling Catheter: Decision to DC Catheter Urinary Catheter Date of Insertion: 10/24/21 Urinary Catheter Time of Insertion: 10:00 Date Urinary Catheter Removed: 10/25/21 Time Urinary Catheter Discontinued: 08:37 Discharge Data Studies Completed and Pending Completed Studies During Hospitalization Category Date Time Status XR knee LT 1-2V [id number] Urgent Exams 10/24/21 12:43 Completed Radiology Impressions Knee X-Ray 10/24/21 12:43 IMPRESSION: Total left knee arthroplasty without abnormality. Laboratory Results WBC 7.6 10^3/uL (4.0-10.0) 10/25/21 05:24 RBC 3.41 10^6/uL (4.1-5.3) L 10/25/21 05:24 Hgb 8.9 g/dL (11.5-15.3) L 10/25/21 05:24 Hct 29.5 % (37.0-47.0) L 10/25/21 05:24 MCV 86.5 fl (81-99) 10/25/21 05:24 MCH 26.1 pg (28.0-34.0) L 10/25/21 05:24 MCHC 30.2 g/dL (30.0-36.0) 10/25/21 05:24 RDW 16.4 % (12.1-15.1) H 10/25/21 05:24 Plt Count 216 10^3/cmm (130-400) 10/25/21 05:24 MPV 11.1 fL (7.4-10.4) H 10/25/21 05:24 Neut % (Auto) 75.3 % 10/25/21 05:24 Lymph % (Auto) 13.3 % 10/25/21 05:24 [place] % (Auto) 10.7 % 10/25/21 05:24 Eos % (Auto) 0.1 % 10/25/21 05:24 Baso % (Auto) 0.3 % 10/25/21 05:24 Neut # (Auto) 5.70 10^3/uL (1.8-7.7) 10/25/21 05:24 Lymph # (Auto) 1.0 10^3/uL (0.8-4.8) 10/25/21 05:24 [place] # (Auto) 0.8 10^3/uL (0.2-0.9) 10/25/21 05:24 Eos # (Auto) 0.0 10^3/uL (0.0-0.8) 10/25/21 05:24 Baso # (Auto) 0.0 10^3/uL (0.0-0.1) 10/25/21 05:24 Nucleated RBC % (auto) 0 % 10/25/21 05:24 Nucleated RBCs # 0.0 /100WBC 10/25/21 05:24 Sodium 142 mmol/L (136-145) 10/25/21 05:24 Potassium 4.0 mmol/L (3.5-5.1) 10/25/21 05:24 Chloride 105 mmol/L (98-107) 10/25/21 05:24 Carbon Dioxide 27 mmol/L (22-29) 10/25/21 05:24 Anion Gap 14.0 (5-19) 10/25/21 05:24 BUN 6 mg/dL (8-23) L 10/25/21 05:24 Creatinine 0.5 mg/dL (0.5-0.9) 10/25/21 05:24 GFR Calculation Not Reportable 10/25/21 05:24 Glucose 118 mg/dL (65-115) H 10/25/21 05:24 POC Glucose 91 mg/dL (70-110) 10/24/21 07:03 Calculated Osmolality 293 mOsm/kg (285-295) 10/25/21 05:24 Calcium 9.7 mg/dL (8.5-10.5) 10/25/21 05:24 Total Bilirubin 0.2 mg/dL (0.15-1.2) 10/17/21 13:00 AST 19 U/L (0-32) 10/17/21 13:00 ALT 9 U/L (0-33) 10/17/21 13:00 Alkaline Phosphatase 87 IU/L (35-105) 10/17/21 13:00 Total Protein 7.4 g/dL (6.6-8.7) 10/17/21 13:00 Albumin 4.1 g/dL (3.5-5.2) 10/17/21 13:00 Globulin 3.3 g/dL (1.3-4.6) 10/17/21 13:00 Urine Color Yellow (Yellow) 10/17/21 13:00 Urine Appearance Clear (CLEAR) 10/17/21 13:00 Urine pH 5 (5-7) 10/17/21 13:00 Ur Specific [place] 1.015 (1.005-1.030) 10/17/21 13:00 Urine Protein Neg (Negative) 10/17/21 13:00 Urine Glucose (UA) Norm (Normal) 10/17/21 13:00 Urine Ketones Negative (Negative) 10/17/21 13:00 Urine Blood Neg (Negative) 10/17/21 13:00 Urine Nitrate Negative (Negative) 10/17/21 13:00 Urine Bilirubin Neg (Negative) 10/17/21 13:00 Urine Urobilinogen Neg mg/dL (Negative) 10/17/21 13:00 Ur Leukocyte Esterase Negative (Negative) 10/17/21 13:00 Coronavirus 229E (PCR) Not detected (NOT DETECT) 10/24/21 06:22 SARS-CoV-2 (PCR) Not detected (NOT DETECT) 10/24/21 06:22 Vitals Last Vital Signs Temp 97.9 F 10/25/21 08:00 Pulse 69 10/25/21 08:00 Resp 18 10/25/21 12:29 BP 137/60 10/25/21 08:00 Pulse Ox 94 10/25/21 12:29 Discharge Plan Discharge Patient Disposition: Home Health Service Condition: Stable Prescriptions: New oxycodone 5 mg Tablet 5 mg PO Q4H PRN (Reason: Moderate Pain) 7 Days Qty: 30 0RF celecoxib 200 mg Capsule 200 mg PO Q12H Qty: 60 0RF Continued (DME) BIPAP Mask and Tubing See Rx Instructions .Route .MEDSUPPLY Qty: 1 0RF Rx Instructions: As directed (DME) blood-glucose meter Kit See Rx Instructions .ROUTE .MEDSUPPLY Qty: 30 11RF Rx Instructions: As directed daily cyanocobalamin (vitamin B-12) 500 mcg tablet 500 mcg PO QAM 0RF albuterol sulfate [ProAir HFA] 90 mcg/actuation HFA aerosol inhaler 2 puff INHALATION QID PRN (Reason: shortness of breath or wheezing) 30 Days Qty: 8.5 5RF calcitonin (salmon) 200 unit/actuation spray,non-aerosol See Rx Instructions .ROUTE .COMPLEX Qty: 3.7 2RF Dose Instruction: ADMINISTER 1 SPRAY INTO ONE NOSTRIL DAILY. ALTERNATE NOSTRILS EACH DAY Rx Instructions: ADMINISTER 1 SPRAY INTO ONE NOSTRIL DAILY. ALTERNATE NOSTRILS EACH DAY omeprazole 40 mg capsule,delayed release(DR/EC) See Rx Instructions .ROUTE .COMPLEX Qty: 30 0RF Dose Instruction: TAKE ONE capsule BY MOUTH DAILY Rx Instructions: TAKE ONE capsule BY MOUTH DAILY citalopram 20 mg tablet 20 mg PO QAM Qty: 30 2RF bumetanide 0.5 mg tablet 0.5 mg PO BID Qty: 60 0RF nystatin 100,000 unit/gram cream 1 applic topical DAILY PRN (Reason: uses after bath) 0RF biotin 500 mcg Capsule 500 mcg PO QAM 0RF calcium carbonate-vitamin D3 [Calcium 600 + D(3)] 600 mg(1,500mg) -400 unit Tablet 1 tab PO QAM 0RF cholecalciferol (vitamin D3) [Vitamin D3] 125 mcg (5,000 unit) Tablet 125 mcg PO QAM 0RF acetaminophen 500 mg Tablet 1,000 mg PO Q8H Qty: 0 0RF aspirin 325 mg Tablet,Delayed Release (Dr/Ec) 325 mg PO DAILY Qty: 0 0RF Discharge Orders: Discharge Order (Routine); Ordered 10/25/21 Ordered By: China Lucero [place] [facility] [place]Outside] China Lucero MD [Physician] - 11/06/21 1:45 pm Discharge Diet: Advance as tolerated and Usual diet Discharge Activity: Increase activity as tolerated, Limit activity as instructed, Use walker/crutches as instructed and As per PT/OT instructions Patient Instructions: Opioid Safety Activity Restrictions/Additional Instructions: Elevate left lower extremity. Maintain dressing until it comes off on its own. Ambulate as tolerated per physical therapy instructions. Weightbearing as tolerated. Ice to left knee. Discharge Attestations Time Spent in Discharge Care*: greater than 30 min Specific Discharge Activities: educating and/or supporting family/caregiver, documenting/other paperwork and evaluating patient/reviewing data Status at Discharge: Cognitive status at discharge: cognitively intact , Behavioral status at discharge: cooperative , Functional status at discharge: uses cane/walker , Overall status at discharge: patient has a new baseline Quality Metrics Clinical Quality Measures [ No reported AMI, CVA or VTE this stay] Coding Level of Care Code Acute Chg FW DC note Exam Comprehensive Diagnoses Primary localized osteoarthritis of left knee M17.12 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
--- NOTE | 2021-10-25 13:18 | PC.NURSE ---
discharge instructions given to patient and patient verbalized understanding of instructions. patient taken to private vehicle via wheelchair by staff.
[2021-10-25 13:19] VITALS: BP 111/63; PULSE 69; RESP 18; TEMP 36.9; O2SAT 94
--- NOTE | 2021-10-25 13:19 | PC.NURSE ---
BENEDICTO faxed to [facility].
== END 2021-10-25 13:29 | disposition home health service (06) ==
LOC: MEDSURG 15:41
PROVIDERS: Admitting Provider Specialist; PCP Nurse Practitioner Family; Visit Provider Specialist
PROC: (CPT 27447; principal; 2021-10-24 09:00)
DX: M17.12 Unilateral primary osteoarthritis, left knee (principal); J44.9 Chronic obstructive pulmonary disease, unspecified; I10 Essential (primary) hypertension; K21.9 Gastro-esophageal reflux disease without esophagitis; E11.649 Type 2 diabetes mellitus with hypoglycemia without coma; G47.33 Obstructive sleep apnea (adult) (pediatric); Z87.891 Personal history of nicotine dependence
CPT/HCPCS: 27447; 36415; 36416; 51702; 64447; 73560; 76942; 80048; 80053; 81003; 82962; 85025; 87635; 96365; 97110; 97116; 97161; 97165; C1713; C1776; C9290; G0378; J0690; J1100; J2704; J2795; J3370; J3490; J7030

== ENCOUNTER → 2021-11-06 14:08 | Outpatient (BNVA) | payer MEDICARE, MEDICAID, SELFPAY | PROVIDERS: PCP Nurse Practitioner Family; Visit Provider Specialist | DX: Z47.89 Encounter for other orthopedic aftercare (principal); Z96.652 Presence of left artificial knee joint | CPT/HCPCS: 73560; 73565 ==

== ENCOUNTER → 2021-11-27 10:05 | Outpatient (BNVA) | payer MEDICARE, MEDICAID, SELFPAY | PROVIDERS: PCP Nurse Practitioner Family; Visit Provider Specialist | DX: Z96.652 Presence of left artificial knee joint (principal) | CPT/HCPCS: 73560; 73565 ==

== ENCOUNTER → 2022-02-14 09:39 | Outpatient (BNVA) | payer MEDICARE, MEDICAID, SELFPAY | PROVIDERS: PCP Nurse Practitioner Family; Visit Provider Nurse Practitioner Family | DX: Z96.652 Presence of left artificial knee joint (principal); Z96.651 Presence of right artificial knee joint | CPT/HCPCS: 73560; 73565; 99213; 99214 ==

== ENCOUNTER → 2022-10-24 13:20 | Outpatient (BNVA) | payer MEDICARE, MEDICAID, SELFPAY | PROVIDERS: Visit Provider Nurse Practitioner Family | DX: Z96.652 Presence of left artificial knee joint (principal) | CPT/HCPCS: 73560; 73565; 99213 ==

== ENCOUNTER → 2022-11-01 10:17 | Outpatient (BNVA) | payer MEDICARE, MEDICAID, SELFPAY | PROVIDERS: PCP Nurse Practitioner; Visit Provider Nurse Practitioner | DX: Z13.6 Encounter for screening for cardiovascular disorders (principal); E11.9 Type 2 diabetes mellitus without complications; I10 Essential (primary) hypertension | CPT/HCPCS: 80053; 80061; 83036; 84443; 85025 ==

== ENCOUNTER → 2023-01-14 11:35 | Outpatient (BNVA) | payer MEDICARE, MEDICAID, SELFPAY | PROVIDERS: PCP Nurse Practitioner; Visit Provider Nurse Practitioner | DX: R60.0 Localized edema (principal) | CPT/HCPCS: 80053 ==

== ENCOUNTER → 2023-10-24 13:22 | Outpatient (BNVA) | payer MEDICARE, MEDICAID, SELFPAY | PROVIDERS: PCP Nurse Practitioner; Visit Provider Nurse Practitioner | DX: M17.0 Bilateral primary osteoarthritis of knee; Z96.653 Presence of artificial knee joint, bilateral | CPT/HCPCS: 73560; 73565; 99213 ==

== ENCOUNTER → 2024-02-18 11:21 | Outpatient (BNVA) | payer MEDICARE, MEDICAID, SELFPAY | PROVIDERS: PCP Nurse Practitioner Family; Visit Provider Nurse Practitioner Family | DX: E55.9 Vitamin D deficiency, unspecified (principal); I10 Essential (primary) hypertension; E11.9 Type 2 diabetes mellitus without complications; E53.8 Deficiency of other specified B group vitamins; M17.0 Bilateral primary osteoarthritis of knee; Z79.899 Other long term (current) drug therapy; D64.9 Anemia, unspecified; Z78.0 Asymptomatic menopausal state; M54.50 Low back pain, unspecified; G89.29 Other chronic pain; F41.9 Anxiety disorder, unspecified; H60.90 Unspecified otitis externa, unspecified ear; M19.90 Unspecified osteoarthritis, unspecified site | CPT/HCPCS: 80053; 80061; 81003; 82306; 82607; 83036; 84443; 85025 ==

== ENCOUNTER → 2024-06-02 11:27 | Outpatient (BNVA) | payer MEDICARE, MEDICAID, SELFPAY | PROVIDERS: PCP Nurse Practitioner Family; Visit Provider Nurse Practitioner Family | DX: E55.9 Vitamin D deficiency, unspecified (principal); D50.9 Iron deficiency anemia, unspecified; I10 Essential (primary) hypertension; D64.9 Anemia, unspecified | CPT/HCPCS: 80053; 81003; 82306; 82728; 83550; 83735; 85025 ==

== ENCOUNTER → 2024-07-02 08:45 | Outpatient (BNVA) | payer MEDICARE, MEDICAID, SELFPAY | PROVIDERS: PCP Nurse Practitioner Family; Referring Provider Nurse Practitioner Family; Visit Provider Nurse Practitioner Family | DX: D48.5 Neoplasm of uncertain behavior of skin (principal); L24.9 Irritant contact dermatitis, unspecified cause; L82.0 Inflamed seborrheic keratosis; D18.01 Hemangioma of skin and subcutaneous tissue; L72.0 Epidermal cyst | CPT/HCPCS: 11102; 17110; 99204 ==

== ENCOUNTER → 2024-09-01 09:59 | Outpatient (BNVA) | payer MEDICARE, MEDICAID, SELFPAY | PROVIDERS: PCP Nurse Practitioner Family; Visit Provider Nurse Practitioner Family | DX: I48.91 Unspecified atrial fibrillation (principal); R94.31 Abnormal electrocardiogram [ECG] [EKG] | CPT/HCPCS: 93005 ==

== ENCOUNTER → 2024-10-21 09:36 | Outpatient (BNVA) | payer MEDICARE, MEDICAID, SELFPAY | PROVIDERS: PCP Nurse Practitioner Family; Visit Provider Nurse Practitioner | DX: Z96.652 Presence of left artificial knee joint (principal); Z96.651 Presence of right artificial knee joint; M17.0 Bilateral primary osteoarthritis of knee | CPT/HCPCS: 73560; 73565; 99213 ==

== ENCOUNTER → 2024-10-26 13:01 | Outpatient (BNVA) | payer MEDICARE, MEDICAID, SELFPAY | PROVIDERS: PCP Nurse Practitioner Family; Visit Provider Nurse Practitioner | DX: M19.012 Primary osteoarthritis, left shoulder (principal); Z71.89 Other specified counseling | CPT/HCPCS: 20610; 73030; 99214; J1100; J2795; J3301 ==

== ENCOUNTER → 2024-12-01 10:57 | Outpatient (BNVA) | payer MEDICARE, MEDICAID, SELFPAY | PROVIDERS: PCP Nurse Practitioner Family; Visit Provider Nurse Practitioner Family | DX: I10 Essential (primary) hypertension (principal); E11.9 Type 2 diabetes mellitus without complications; E53.8 Deficiency of other specified B group vitamins; E55.9 Vitamin D deficiency, unspecified; E04.1 Nontoxic single thyroid nodule; D64.9 Anemia, unspecified; D50.9 Iron deficiency anemia, unspecified | CPT/HCPCS: 80053; 80061; 82306; 83036; 83550; 83921; 84443; 85025 ==

== ENCOUNTER → 2024-12-16 13:06 | Outpatient (BNVA) | payer MEDICARE, MEDICAID, SELFPAY | PROVIDERS: PCP Nurse Practitioner Family; Referring Provider Nurse Practitioner Family; Visit Provider Internal Medicine | DX: I49.9 Cardiac arrhythmia, unspecified (principal) | CPT/HCPCS: 93005 ==

== ENCOUNTER → 2024-12-21 09:02 | Outpatient (BNVA) | payer MEDICARE, MEDICAID, SELFPAY | PROVIDERS: PCP Nurse Practitioner Family; Visit Provider Podiatrist Foot & Ankle Surgery | DX: E11.42 Type 2 diabetes mellitus with diabetic polyneuropathy (principal); M20.41 Other hammer toe(s) (acquired), right foot; M20.42 Other hammer toe(s) (acquired), left foot; M25.879 Other specified joint disorders, unspecified ankle and foot; M21.611 Bunion of right foot; M21.612 Bunion of left foot; M21.621 Bunionette of right foot; M21.622 Bunionette of left foot | CPT/HCPCS: 99203 ==

== ENCOUNTER → 2024-12-31 09:33 | Outpatient (BNVA) | payer MEDICARE, MEDICAID, SELFPAY | PROVIDERS: PCP Nurse Practitioner Family; Visit Provider Nurse Practitioner Family | DX: D04.72 Carcinoma in situ of skin of left lower limb, including hip (principal); S00.80XA Unspecified superficial injury of other part of head, initial encounter; R58 Hemorrhage, not elsewhere classified; L24.9 Irritant contact dermatitis, unspecified cause; L72.0 Epidermal cyst; D18.01 Hemangioma of skin and subcutaneous tissue; S80.262A Insect bite (nonvenomous), left knee, initial encounter; X58.XXXA Exposure to other specified factors, initial encounter; D48.5 Neoplasm of uncertain behavior of skin | CPT/HCPCS: 10120; 11102; 99214 ==

== ENCOUNTER → 2025-01-25 12:49 | Outpatient (BNVA) | payer MEDICARE, MEDICAID, SELFPAY | PROVIDERS: PCP Nurse Practitioner Family; Visit Provider Nurse Practitioner | DX: M19.012 Primary osteoarthritis, left shoulder (principal); Z71.89 Other specified counseling | CPT/HCPCS: 99213 ==

== ENCOUNTER → 2025-01-27 14:19 | Outpatient (BNVA) | payer MEDICARE, MEDICAID, SELFPAY | PROVIDERS: PCP Nurse Practitioner Family; Visit Provider Dermatology | DX: D23.61 Other benign neoplasm of skin of right upper limb, including shoulder (principal); L81.7 Pigmented purpuric dermatosis; Z08 Encounter for follow-up examination after completed treatment for malignant neoplasm; Z86.007 Personal history of in-situ neoplasm of skin; D48.5 Neoplasm of uncertain behavior of skin | CPT/HCPCS: 11102; 99213 ==

== ENCOUNTER → 2025-02-23 11:41 | Outpatient (BNVA) | payer MEDICARE, MEDICAID, SELFPAY | PROVIDERS: PCP Nurse Practitioner Family; Visit Provider Dermatology | DX: L81.7 Pigmented purpuric dermatosis (principal); L72.0 Epidermal cyst; L82.1 Other seborrheic keratosis; D18.01 Hemangioma of skin and subcutaneous tissue; Z08 Encounter for follow-up examination after completed treatment for malignant neoplasm; L82.0 Inflamed seborrheic keratosis; R20.8 Other disturbances of skin sensation; L53.8 Other specified erythematous conditions; L29.89 Other pruritus; L91.8 Other hypertrophic disorders of the skin | CPT/HCPCS: 11200; 17110; 99213 ==

== ENCOUNTER → 2025-03-23 09:34 | Outpatient (BNVA) | payer OTHER, MEDICAID, SELFPAY | PROVIDERS: PCP Nurse Practitioner Family; Visit Provider Podiatrist Foot & Ankle Surgery | DX: E11.42 Type 2 diabetes mellitus with diabetic polyneuropathy (principal); M20.41 Other hammer toe(s) (acquired), right foot; M20.42 Other hammer toe(s) (acquired), left foot; M25.879 Other specified joint disorders, unspecified ankle and foot; M21.611 Bunion of right foot; M21.612 Bunion of left foot; M21.621 Bunionette of right foot; M21.622 Bunionette of left foot; L84 Corns and callosities; M25.872 Other specified joint disorders, left ankle and foot | CPT/HCPCS: 99213 ==

== ENCOUNTER → 2025-06-07 09:46 | Outpatient (BNVA) | payer OTHER, MEDICAID, SELFPAY | PROVIDERS: PCP Nurse Practitioner Family; Visit Provider Dermatology | DX: L97.829 Non-pressure chronic ulcer of other part of left lower leg with unspecified severity (principal); L81.7 Pigmented purpuric dermatosis; L82.1 Other seborrheic keratosis; D18.01 Hemangioma of skin and subcutaneous tissue; L72.0 Epidermal cyst; I87.2 Venous insufficiency (chronic) (peripheral); R60.0 Localized edema; Z08 Encounter for follow-up examination after completed treatment for malignant neoplasm; Z86.007 Personal history of in-situ neoplasm of skin | CPT/HCPCS: 99214 ==

== ENCOUNTER → 2025-06-24 12:06 | Outpatient (BNVA) | payer MEDICARE, MEDICAID, SELFPAY | PROVIDERS: PCP Nurse Practitioner Family; Visit Provider Dermatology | DX: L97.829 Non-pressure chronic ulcer of other part of left lower leg with unspecified severity (principal); L81.7 Pigmented purpuric dermatosis; I87.2 Venous insufficiency (chronic) (peripheral); R60.0 Localized edema | CPT/HCPCS: 99214 ==

== ENCOUNTER → 2025-07-14 11:01 | Outpatient (BNVA) | payer MEDICARE, MEDICAID, SELFPAY | PROVIDERS: PCP Nurse Practitioner Family; Referring Provider Nurse Practitioner Family; Visit Provider Internal Medicine Cardiovascular Disease | DX: I48.19 Other persistent atrial fibrillation (principal); R07.9 Chest pain, unspecified; I10 Essential (primary) hypertension; G47.33 Obstructive sleep apnea (adult) (pediatric); R60.0 Localized edema; Z87.891 Personal history of nicotine dependence; I48.91 Unspecified atrial fibrillation; R94.31 Abnormal electrocardiogram [ECG] [EKG]; Z79.01 Long term (current) use of anticoagulants | CPT/HCPCS: 36415; 80048; 83880; 93005; 99204 ==

== ENCOUNTER → 2025-07-15 11:57 | Outpatient (BNVA) | payer MEDICARE, MEDICAID, SELFPAY | PROVIDERS: PCP Nurse Practitioner Family; Visit Provider Dermatology | DX: L97.829 Non-pressure chronic ulcer of other part of left lower leg with unspecified severity (principal); L81.7 Pigmented purpuric dermatosis; R60.0 Localized edema | CPT/HCPCS: 99214 ==

== ENCOUNTER 2025-07-21 14:31 | Outpatient (CLI) | payer MEDICARE, MEDICAID, SELFPAY ==
--- NOTE | 2025-07-21 14:40 | MM_ITS ---
WS: [id number] BILATERAL 3D TOMOSYNTHESIS DIGITAL SCREENING MAMMOGRAPHY WITH CAD CLINICAL INFORMATION: Z12.31 - Encounter for screening mammogram for malignant ... HISTORY: Screening mammogram. No current complaints. COMPARISON: 2019 TECHNIQUE: Bilateral CC and MLO views. FINDINGS: The breasts are composed of heterogeneous fibroglandular density tissue, which can limit the detection of small underlying mass lesions. No suspicious mass, asymmetry, calcifications, or architectural distortion. No evidence of malignancy. Vascular calcification. Incidental punctate and lucent centered calcifications. MM/MM [facility] tomosynthesis [id number] IMPRESSION: DENSITY: The breasts are heterogeneously dense, which may obscure small masses. BI-RADS: 2 - Benign FOLLOW UP: 1 Year Follow-up Recommend return to annual screening mammography.
== END 2025-07-21 14:32 | disposition home or self-care (01) ==
LOC: MOBLMAM 14:32
PROVIDERS: PCP Nurse Practitioner Family; Visit Provider Nurse Practitioner Family
DX: Z12.31 Encounter for screening mammogram for malignant neoplasm of breast (principal); R92.333 Mammographic heterogeneous density, bilateral breasts; R92.323 Mammographic fibroglandular density, bilateral breasts; R92.1 Mammographic calcification found on diagnostic imaging of breast
CPT/HCPCS: 77063; 77067

== ENCOUNTER → 2025-07-22 14:11 | Outpatient (BNVA) | payer MEDICARE, MEDICAID, SELFPAY | PROVIDERS: PCP Nurse Practitioner Family; Visit Provider Thoracic Surgery (Cardiothoracic Vascular Surgery) | DX: I96 Gangrene, not elsewhere classified (principal); L97.321 Non-pressure chronic ulcer of left ankle limited to breakdown of skin | CPT/HCPCS: 97597; 99213; A6021; A6251 ==

== ENCOUNTER → 2025-07-26 08:01 | Outpatient (BNVA) | payer MEDICARE, MEDICAID, SELFPAY | PROVIDERS: PCP Nurse Practitioner Family; Visit Provider Thoracic Surgery (Cardiothoracic Vascular Surgery) | DX: I96 Gangrene, not elsewhere classified (principal); L97.321 Non-pressure chronic ulcer of left ankle limited to breakdown of skin | CPT/HCPCS: 97597; A6021; A6252 ==

== ENCOUNTER → 2025-08-02 07:56 | Outpatient (BNVA) | payer MEDICARE, MEDICAID, SELFPAY | PROVIDERS: PCP Nurse Practitioner Family; Visit Provider Thoracic Surgery (Cardiothoracic Vascular Surgery) | DX: I96 Gangrene, not elsewhere classified (principal); L97.321 Non-pressure chronic ulcer of left ankle limited to breakdown of skin | CPT/HCPCS: 97597; A6212 ==

== ENCOUNTER 2025-08-04 07:48 | Outpatient (CLI) | payer MEDICARE, MEDICAID, SELFPAY ==
--- NOTE | 2025-08-04 | ECG_ITS ---
[facility] Date: 2025-08[facility]04 Pat Name: Gbai Calix Department: Room: Gender: Female Title Assistant: : 1945 Requested By: Abdirizak Gonsales Order Number: [id number] Quiroga MD: Ollie Eli M.D. Interpretive Statements LEXISCAN SESTAMIBI STRESS TEST Procedure: At the baseline, the blood pressure was 159/90 mmHg with a heart rate of 84 bpm. The electrocardiogram showed atrial fibrillation with normal ST and T's. The Lexiscan was infused over a period of 20 seconds. A total of 0.4 mg of Lexiscan was infused. The stress phase was continued for a total of 5 minutes. Heart rate was at the end of stress phase was 86 bpm and a blood pressure of 135/84 mmHg. The EKG at the peak infusion revealed atrial fibrillation with no significant ST-T wave changes. Sestamibi was injected 20 seconds after the Lexiscan infusion. Blood pressure at the end of recovery phase was 142/83 mmHg with a heart rate of 87 bpm. Conclusion: 1. Normal EKG response to Lexiscan infusion 2. No Lexiscan induced chest pain or cardiac arrhythmia. 3. Normal blood pressure and heart rate response. 4. Sestamibi/sestamibi perfusion scan pending; see separate report. Electronically Signed On 08-10-2025 11:01:35 ENGINE TESTER by Ollie Eli M.D. [email or web address]
[2025-08-04 08:06] VITALS: BMI 36.6
--- NOTE | 2025-08-04 08:07 | NMCV_ITS ---
NM giorgi perf SPECT r/s* [id number] Gabi Calix Age: 80 Gender: F : 1945 Exam Date: 08/04/2025 09:15 Ordering Phys: Abdirizak Gonsales MD ([email or web address]) Technologist: EMILIANO Berg Exam Location: [facility] Indications: cp STRESS TEST [facility] IMAGE PROTOCOL Rest/Stress 1 Lexiscan Day Radiopharmaceutical Dose (mCi) Administration Site Administered by Rest: Tc-99m 10.4 IV Kendal Morse, CUSTOMER SERVICE REPRESENTATIVE Sestamibi Stress:Tc-99m 32.1 IV Kendal Morse, CUSTOMER SERVICE REPRESENTATIVE Sestamibi Rest: 04-Aug-2025 60 Discovery 630 Stress: 04-Aug-2025 30 Discovery 630 0.4mg Lexiscan. Supine position only as patient was unable to lay prone. SPECT RESULTS Technical Quality: Good Raw Data Analysis: Normal Image Corrections: No attenuation or motion correction applied Summed Stress Score: 4 Summed Rest Score: 6 Summed Difference Score: 0 PERFUSION FINDINGS Small to medium sized area of fixed perfusion defect seen in the apical, apical inferior and inferolateral garrett. This is consistent with small to medium sized area of prior infarct seen in these garrett. No evidence of ischemia. FUNCTIONAL RESULTS (calculated via Gated SPECT) Stress Image LV EF (%): 47 Stress EDV (mL):107 TID: 1.06 Stress ESV (mL):57 FUNCTIONAL FINDINGS: LV systolic function is mildly reduced with EF of 47% IMPRESSIONS 1. 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 No evidence of ischemia. 2. LV systolic function is mildly reduced with EF of 47% Ollie Eli MD (Electronically Signed) Final Date: 07 August 2025 11:18 S
[2025-08-04 10:05] VITALS: BP 142/83; PULSE 89
--- NOTE | 2025-08-04 12:45 | USCV_ITS ---
Gabi Calix Age: 80 Gender: F : 1945 Exam Date: 08/04/2025 13:15 Ordering Phys: Abdirizak Gonsales MD ([email or web address]) Technologist: Exam Location: [facility] [place] Indication: cp BP: 120 / 70 HR: 87 Rhythm: Sinus Technical Quality: MEASUREMENTS (Male / Female) Normal Values 2D ECHO LV Diastolic Diameter PLAX 5.0 cm 4.2 - 5.9 / 3.9 - 5.3 cm IVS Diastolic Thickness 1.3 cm 0.6 - 1.0 / 0.6 - 0.9 cm IVS Systolic Thickness 1.9 cm LVPW Diastolic Thickness 1.2 cm 0.6 - 1.0 / 0.6 - 0.9 cm LVPW Systolic Thickness 1.9 cm LVOT Diameter 2.1 cm LV Ejection Fraction 2D Teich 60.8 % LV Ejection Fraction MOD 4C 62.3 % LV Ejection Fraction MOD 2C 73.5 % LV Ejection Fraction 2C AL 74.5 % LA Diameter 5.0 cm RA Systolic Volume 4C AL 95.4 ml RA Systolic Volume 4C MOD 94.1 ml LA Sys Volume AL 110.9 cm cubed LA Sys Volume Index AL 50.7 cm cubed/m squared Aorta at Sinotubular Diameter 3.7 cm IVC Diameter 1.3 cm M-MODE LA Ao Ratio MM 1.6 MV E Point Septal Separation 1.8 cm AV Cusp Separation MM 2.3 cm DOPPLER AV Peak Velocity 131.0 cm/s LVOT Peak Velocity 82.0 cm/s AV Area Cont Eq vti 2.0 cm squared AV Area Cont Eq pk 2.1 cm squared MV Peak Velocity 131.0 cm/s MV Area PHT 3.7 cm squared Mitral E to A Ratio 2.4 TR Peak Velocity 342.0 cm/s TR Peak Gradient 46.8 mmHg TV Peak E Velocity 117.0 cm/s PV Peak Velocity 111.0 cm/s FINDINGS Left Ventricle Normal left ventricular size and systolic function, EF 55-60%. No regional wall motion abnormalities. Right Ventricle Normal in size and function Right Atrium Severely dilated Left Atrium Severely dilated IA Septum Grossly normal Mitral Valve Mild mitral annular calcification. Mild mitral regurgitation Aortic Valve Structurally normal aortic valve. No significant stenosis or regurgitation Tricuspid Valve Mild tricuspid regurgitation. RVSP is 45-50 mmHg. This is consistent with moderate pulmonary hypertension Pulmonic Valve Not well visualized Pericardium Normal Aorta Normal in size IVC Appears to be normal CONCLUSIONS LV systolic function is normal with EF of 55-60%. Biatrial enlargement Mild mitral regurgitation Mild tricuspid regurgitation Moderate pulmonary hypertension Ollie Eli MD (Electronically Signed) Final Date: 07 August 2025 13:45 S
== END 2025-08-04 07:49 | disposition home or self-care (01) ==
PROVIDERS: PCP Nurse Practitioner Family; Visit Provider Internal Medicine Cardiovascular Disease
DX: I48.91 Unspecified atrial fibrillation (principal); R07.9 Chest pain, unspecified; I34.0 Nonrheumatic mitral (valve) insufficiency; I36.1 Nonrheumatic tricuspid (valve) insufficiency; I27.20 Pulmonary hypertension, unspecified; I51.7 Cardiomegaly
CPT/HCPCS: 36415; 78452; 93017; 93306; 96374; A9500; J2785

== ENCOUNTER → 2025-08-09 07:54 | Outpatient (BNVA) | payer MEDICARE, MEDICAID, SELFPAY | PROVIDERS: PCP Nurse Practitioner Family; Visit Provider Thoracic Surgery (Cardiothoracic Vascular Surgery) | DX: Z09 Encounter for follow-up examination after completed treatment for conditions other than malignant neoplasm (principal); Z87.2 Personal history of diseases of the skin and subcutaneous tissue | CPT/HCPCS: 99212; J9999 ==

== ENCOUNTER → 2025-09-15 07:57 | Outpatient (BNVA) | payer MEDICARE, MEDICAID, SELFPAY | PROVIDERS: PCP Nurse Practitioner Family; Visit Provider Internal Medicine Cardiovascular Disease | DX: I48.19 Other persistent atrial fibrillation (principal); Z79.01 Long term (current) use of anticoagulants; I10 Essential (primary) hypertension; G47.33 Obstructive sleep apnea (adult) (pediatric); R60.0 Localized edema | CPT/HCPCS: 99214 ==